=== PATIENT | female | born 1965 | race Caucasian/White ===

== ENCOUNTER 2024-12-20 16:29 | Outpatient (REF) | payer MEDICARE, SELFPAY ==
--- OUTSIDE RECORDS SUMMARY | 2024-12-20 16:35 | XMS_ITS ---
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 Role Phone Henry GRIMES, [facility] Primary Care Provider CHACHO Mejia Unavailable [phone] Allergies No Known Allergies REASON FOR VISIT RIGHT LOW BACK PAIN, RIGHT HIP PAIN, RIGHT LEG PAIN Medications Medication SIG (Take, Route, Frequency, Duration) Notes Start Date End Date Status DULoxetine HCl 40 MG 1 capsule Orally Once a day Not-Taking diazePAM 5 MG 1 tablet as needed Orally every 8 hours Not-Taking Amitiza 24 MCG 1 capsule with food and water Orally Twice a day for 30 day(s) 02/14/2020 Not-Taking Atomoxetine HCl 80 MG Orally Once a day Not-Taking Naproxen 500 MG 1 tablet with food or milk Orally Twice a day Not-Taking Ventolin HFA 108 (90 Base) MCG/ACT 2 puffs Inhalation every 4 hrs Not-Taking Lisinopril 20 MG 1 tablet Orally Once a day Not-Taking rOPINIRole HCl 1 MG 1 tablet Orally Once a day Not-Taking Atomoxetine HCl 40 MG 1 capsule Orally Twice a day Not-Taking Citalopram Hydrobromide Not-Taking OxyCONTIN 15 MG 1 tablet Orally every 8 hrs for 18 days M47.816 Lumbar spondylosis, the patient can request partial refill 11/10/2023 Active OxyCONTIN 15 MG 1 tablet Orally every 12 hrs 11/10/2023 Active Methocarbamol 500 MG TAKE 1 TABLET BY MOUTH EVERY 8 HOURS for 30 Active Lidocaine 5 % APPLY 1 PATCH TOPICALLY EVERY DAY, REMOVE AFTER 12 HOURS for 60 days Active methylPREDNISolone 4 MG as directed Orally 6 days for 6 days take as directed 01/25/2024 Active Xtampza ER 13.5 MG 1 capsule with food Orally every 12 hrs for 30 days 02/24/2023 Active tiZANidine HCl 4 MG TAKE 1 TO 2 TABLETS BY MOUTH EVERY NIGHT AT BEDTIME for 30 Active Skelaxin 800 MG 1 tablet Orally Three times a day for 30 day(s) 02/26/2022 Active Narcan 4 MG/0.1ML as directed, after use immediately call 911 Nasally as needed for 30 days 03/04/2021 Active busPIRone HCl 10 MG 1 tablet Orally Twice a day Active traZODone HCl 50 MG 1 tablet Orally BID Active hydrOXYzine HCl 25 MG 1 tablet as needed Orally TID Active Senna 8.6 MG 2 tablets at bedtime as needed Orally Once a day for 30 day(s) 07/29/2020 Active Polyethylene Glycol 3350 17 GM/SCOOP as directed Orally Once a day for 30 days 07/29/2020 Active Albuterol Sulfate 2 puffs Inhalation as needed Active Acyclovir 200 MG 1 capsule Orally Three times a day Active Cane - as directed Active Pantoprazole Sodium 40 MG 1 tablet Orally Once a day Active Eliquis 2.5 MG as directed Orally Active clonazePAM 0.5 MG 1 tablet Orally Once a day Active Lidocaine 5 % 1 patch remove after 12 hours Externally Once a day for 30 days Active Social History Tobacco Use: Social History Observation Description Date Details (start date - stop date) Never Smoker NA - NA Tobacco Use/Smoking Question Answer Notes Are you a nonsmoker Tobacco Control (Standard) Question Answer Notes Tobacco use: Nonsmoker Vital Signs Temperature 98.4 degrees Fahrenheit 04/25/20 24 Heart Rate 107 /min 04/25/2024 Blood pressure systolic 178 mm Hg 04/25/20 24 Blood pressure diastolic 97 mm Hg 024 Height 65 in 04/25/2024 Weight 145 lbs 04/25/2024 BMI 24.13 kg/m2 04/25/2024 Oximetry 97 % 04/25/2024 Encounters Encounter Location Date Provider Diagnosis [facility] [address] [place] [id number] 04/25/2024 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.891 ; Spondylosis without myelopathy or radiculopathy, lumbar region M47.816 and Radiculopathy, lumbosacral region M54.17 Assessments Encounter Date Diagnosis (ICD Code) Assessment Notes Treatment Notes Treatment Clinical Notes Section Notes 04/25/2024 assisted (current) use of opiate analgesic (ICD-10 - Z79.891) 04/25/2024 Spondylosis without myelopathy or radiculopathy, lumbar region (ICD-10 - M47.816) 04/25/2024 Radiculopathy, lumbosacral region (ICD-10 - M54.17) Regarding medication management, we checked the prescription monitoring program it was appropriate, and drug screen test done on03/28/24 and on 04/05/2024 was positive for oxycodone, and metabolites,but also positive for cocaine for the second time we told the patient that we won't be able to prescribe narcotic pain medications I give her a weaning protocol, I offered her clonidine but she said that she already has a at home I give her instructions how to use it I offered to referring her to an network operations specialist but she is denying she is saying that her has put cocaine in 1 of her dental medications that she was for pain when she had dental problems last month, he was angry with her because she was directed she was not aware that it had dental pain, she is filing a divorce, I ordered a urine drug screen test to confirm compliance today I might consider Suboxone in the future but I told her that I would make my decision next visit I spoke with the patient regarding the previous urine drug screen test that was positive in March in a previous discussion but she denied that is why be repeated it in AprilRegarding physical therapy, continue physical therapy exercisesRegarding interventional procedures, the patient is experiencing a flareup of pain in the right lower extremity she has approval for the transforaminal epidural steroid injection,she doesn't want to do the interventional procedures today Plan Of Treatment Treatment Notes Assessment Notes Radiculopathy, lumbosacral region Regard ing medication management, we checked the prescription monitoring program it was appropriate, and drug screen test done on03/28/24 and on 04/05/2024 was positive for oxycodone, and metabolites,but also positive for cocaine for the second time we told the patient that we won't be able to prescribe narcotic pain medications I give her a weaning protocol, I offered her clonidine but she said that she already has a at home I give her instructions how to use it I offered to referring her to an network operations specialist but she is denying she is saying that her has put cocaine in 1 of her dental medications that she was for pain when she had dental problems last month, he was angry with her because she was directed she was not aware that it had dental pain, she is filing a divorce, I ordered a urine drug screen test to confirm compliance today I might consider Suboxone in the future but I told her that I would make my decision next visit I spoke with the patient regarding the previous urine drug screen test that was positive in March in a previous discussion but she denied that is why be repeated it in AprilRegarding physical therapy, continue physical therapy exercisesRegarding interventional procedures, the patient is experiencing a flareup of pain in the right lower extremity she has approval for the transforaminal epidural steroid injection,she doesn't want to do the interventional procedures today Next Appt Details Follow Up: 4 Weeks, Reason: Progress Notes * ALLEN CARRERA ADOB:[birth year] (58 yo F)Acc No.[id number]:04/25/2024 Progress Notes Patient:?ALLEN CARRERA A Provider:?Chacho Price MD :[id number]???Age:58 Y???Sex:Female D ate:04/25/2024 Address:[address] [place] [address] Pcp:Stella Figueroa MD Subjective: * Chief Complaints: * ???RIGHT LOW BACK PAINRIGHT HIP PAINRIGHT LEG PAIN * HPI: ???Type:?Patient returns today for follow-up working mouth infection she was started on antibiotic due to that?continues to suffer from pain in the low back area and lower extremity reporting that for the last week the pain has recurred in the low back and the right lower extremity requesting repeating the epidural steroid injection, the last injection offered her 90% relief of pain for 4 month she was able to stand, walk, sleep without pain until the pain recurred again last week,experiencing a flareup of pain in the low back area radiating to the right lower extremity and sharpshooting attacks associated with weakness and numbness and tingling the patient has tried nonsteroidals, Tylenol, physical therapy exercises for the last 4 months with no relief she is requesting injections to help relieve the pain pain score during the interview is more than 6 the patient continues to take her pain medications as prescribed only from our clinic they help relieve the pain improve mobility activity analgesia range of motion no constipation. * ROS:?General/Constitutional:?Denies?Chills.?Denies?Fatigue.?Denies?Fever.?Endocrine:?Denies?Diabetes.?Respiratory:?Admits?Breathing problems.?Admits?Shortness of breath.?Cardiovascular:?Denies?Chest pain.?Musculoskeletal:?Denies?Neck pain.?Admits?Arthritis.?Admits?Back problems.?Skin:?Denies?Skin lesion(s).?Neurologic:?Denies?Tingling/Numbness.?Psychiatric:?Admits?Anxiety.?Admits?Depressed mood.? * Medical History:? * Surgical History:?DNC proced ure that was done in 2000 and had complications and has been on disability since laprascopy 2 * Hospitalization/Major Diagno stic Procedure:?in hospital for entire month of may for gallbladder and pancreas stones and cysts 05/2020er for vomitting all day- gave zofran and sent home- unsure of cause 09/02/2020ER FOR ANIETY HAD A BAD FALL HIT HER HEAD AND PASSED OUT 04/23/24 * Family History:?Mother: [place] n and lung Cancer.? * Social History:?Tobacco Use:?Tobacco Use/Smoking?Are you a?nonsmoker ?Tobacco Control (Standard)?Tobacco use:?Nonsmoker * Medications:?TakingLidocaine 5 % Patch 1 patch remove after 12 hours Externally Once a day Cane - Miscellaneous as directed Acyclovir 200 MG Capsule 1 capsule Orally Three times a day Pantoprazole Sodium 40 MG Tablet Delayed Release 1 tablet Orally Once a day clonazePAM 0.5 MG Tablet 1 tablet Orally Once a day Eliquis 2.5 MG Tablet as directed Orally hydrOXYzine HCl 25 MG Tablet 1 tablet as needed Orally TID traZODone HCl 50 MG Tablet 1 tablet Orally BID Albuterol Sulfate 2 puffs Inhalation as needed Polyethylene Glycol 3350 17 GM/SCOOP Powder as directed Orally Once a day Senna 8.6 MG Tablet 2 tablets at bedtime as needed Orally Once a day busPIRone HCl 10 MG Tablet 1 tablet Orally Twice a day Narcan 4 MG/0.1ML Liquid as directed, after use immediately call 911 Nasally as needed Skelaxin 800 MG Tablet 1 tablet Orally Three times a day tiZANidine HCl 4 MG Tablet TAKE 1 TO 2 TABLETS BY MOUTH EVERY NIGHT AT BEDTIME Xtampza ER 13.5 MG Capsule ER 12 Hour Abuse-Deterrent 1 capsule with food Orally every 12 hrs Lidocaine 5 % Patch APPLY 1 PATCH TOPICALLY EVERY DAY, REMOVE AFTER 12 HOURS Methocarbamol 500 MG Tablet TAKE 1 TABLET BY MOUTH EVERY 8 HOURS OxyCONTIN 15 MG Tablet ER 12 Hour Abuse-Deterrent 1 tablet Orally every 12 hrs OxyCONTIN 15 MG Tablet ER 12 Hour Abuse-Deterrent 1 tablet Orally every 8 hrs , Notes to Pharmacist: M47.816 Lumbar spondylosis, the patient can request partial refillmethylPREDNISolone 4 MG Tablet Therapy Pack as directed Orally 6 days take as directedTaking Lidocaine 5 % Patch 1 patch remove after 12 hours Externally Once a day Taking Cane - Miscellaneous as directed Taking Acyclovir 200 MG Capsule 1 capsule Orally Three times a day Taking Pantoprazole Sodium 40 MG Tablet Delayed Release 1 tablet Orally Once a day Taking clonazePAM 0.5 MG Tablet 1 tablet Orally Once a day Taking Eliquis 2.5 MG Tablet as directed Orally Taking hydrOXYzine HCl 25 MG Tablet 1 tablet as needed Orally TID Taking traZODone HCl 50 MG Tablet 1 tablet Orally BID Taking Albuterol Sulfate 2 puffs Inhalation as needed Taking Polyethylene Glycol 3350 17 GM/SCOOP Powder as directed Orally Once a day Taking Senna 8.6 MG Tablet 2 tablets at bedtime as needed Orally Once a day Taking busPIRone HCl 10 MG Tablet 1 tablet Orally Twice a day Taking Narcan 4 MG/0.1ML Liquid as directed, after use immediately call 911 Nasally as needed Taking Skelaxin 800 MG Tablet 1 tablet Orally Three times a day Taking tiZANidine HCl 4 MG Tablet TAKE 1 TO 2 TABLETS BY MOUTH EVERY NIGHT AT BEDTIME Taking Xtampza ER 13.5 MG Capsule ER 12 Hour Abuse-Deterrent 1 capsule with food Orally every 12 hrs Taking Lidocaine 5 % Patch APPLY 1 PATCH TOPICALLY EVERY DAY, REMOVE AFTER 12 HOURS Taking Methocarbamol 500 MG Tablet TAKE 1 TABLET BY MOUTH EVERY 8 HOURS Taking OxyCONTIN 15 MG Tablet ER 12 Hour Abuse-Deterrent 1 tablet Orally every 12 hrs Taking OxyCONTIN 15 MG Tablet ER 12 Hour Abuse-Deterrent 1 tablet Orally every 8 hrs , Notes to Pharmacist: M47.816 Lumbar spondylosis, the patient can request partial refillTaking methylPREDNISolone 4 MG Tablet Therapy Pack as directed Orally 6 days take as directedNot-Taking/PRNCitalopram Hydrobromide Atomoxetine HCl 40 MG Capsule 1 capsule Orally Twice a day rOPINIRole HCl 1 MG Tablet 1 tablet Orally Once a day Lisinopril 20 MG Tablet 1 tablet Orally Once a day Ventolin HFA 108 (90 Base) MCG/ACT Aerosol Solution 2 puffs Inhalation every 4 hrs DULoxetine HCl 40 MG Capsule Delayed Release Particles 1 capsule Orally Once a day Naproxen 500 MG Tablet 1 tablet with food or milk Orally Twice a day Atomoxetine HCl 80 MG Capsule Orally Once a day Amitiza 24 MCG Capsule 1 capsule with food and water Orally Twice a day diazePAM 5 MG Tablet 1 tablet as needed Orally every 8 hours Medication List reviewed and reconciled with the patientNot-Taking/PRN Citalopram Hydrobromide Not- Taking/PRN Atomoxetine HCl 40 MG Capsule 1 capsule Orally Twice a day Not-Taking/PRN rOPINIRole HCl 1 MG Tablet 1 tablet Orally Once a day Not-Taking/PRN Lisinopril 20 MG Tablet 1 tablet Orally Once a day Not-Taking/PRN Ventolin HFA 108 (90 Base) MCG/ACT Aerosol Solution 2 puffs Inhalation every 4 hrs Not-Taking/PRN DULoxetine HCl 40 MG Capsule Delayed Release Particles 1 capsule Orally Once a day Not-Taking/PRN Naproxen 500 MG Tablet 1 tablet with food or milk Orally Twice a day Not-Taking/PRN Atomoxetine HCl 80 MG Capsule Orally Once a day Not-Taking/PRN Amitiza 24 MCG Capsule 1 capsule with food and water Orally Twice a day Not-Taking/PRN diazePAM 5 MG Tablet 1 tablet as needed Orally every 8 hours Medication List reviewed and reconciled with the patient * Allergies:?N.K.D.A.no[Allerg ies Verified] Objective: * Vitals:?Temp:98.4F, HR:107/m in, BP:178/97mm Hg, Ht: 65 in, Wt:145lbs, BMI:24.13Index, Oxygen sat %:97%, Pain scale:41-10, Wt-k.77 kg. * Examination: ???General Examination: ?GENERAL APPEARANCE:? alert and oriented x3, ambulating without cane.?SKIN:? normal, intact, no rashes, warm and dry.?BACK:?moderate to severe decrease range of motion on lumbar extension, side bending and rotatation left with exacerbation of pain in these positions,positive Right lumbar facet loading test, positive tenderness on palpating Right paravertebral areas at L2,3,4, 5 worse on right,motor power 5/5, except the right lower extremity 3/5, decreased sensation to light touch along the posterior and lateral aspect of right lower extremity in the right L 5 and S1 distribution positive right straight leg raising test on right at 30 degrees., Positive right ilioinguinal area tenderness on palpation negative pain on internal rotation of both hips, negative swelling on the left wrist area, no splints or bandages, no redness..? 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 Plan: * Treatment: * Procedure Codes:? * Follow Up:?4 Weeks * Images: * Sign off status: Completed true * Provider:?Chacho Price MD Date:? 024 Generated for Henna vitale/Irina/eTransmitting on:?12/20/2024 04:35 PM EST History and Physical Notes * Examination Category Sub-Category Detail Notes Category Not es General Examination GENERAL APPEARANCE: alert an d oriented x3, ambulating without cane SKIN: normal, intact, no r ashes, warm and dry BACK: moderate to severe d ecrease range of motion on lumbar extension, side bending and rotatation left with exacerbation of pain in these positions, positive Right lumbar facet loading test, positive tenderness on palpating Right paravertebral areas at L2,3,4, 5 worse on right,motor power 5/5, except the right lower extremity 3/5, decreased sensation to light touch along the posterior and lateral aspect of right lower extremity in the right L 5 and S1 distribution positive right straight leg raising test on right at 30 degrees., Positive right ilioinguinal area tenderness on palpation negative pain on internal rotation of both hips, negative swelling on the left wrist area, no splints or bandages, no redness.
--- OUTSIDE RECORDS SUMMARY | 2024-12-20 16:35 | XMS_ITS | Patient Health Record ---
Author Organization [facility] Address [address] [place] [address] Care Team Providers [facility] Counselor Name Role Phone Henry GRIMES, [facility] Primary Care Provider Juliet LINDA Ryan Unavailable [phone] Allergies No Known Allergies Results Component Value Reference Range Notes TRAMADOL QUANTITATIVE (Not y et reviewed by provider) Interpretation: Performing Lab:[facility], [facility], [address], [place], [place] [id number], Phone - , Director - Osorio Bauman MD Notes/Report: Prescribed Medications: Oxycodone (Oxycodone-Conc), OxyContin (Oxycodone) Tramadol NEGATIVE 100 ng/ml O-Desmethyltramadol NEGATIVE 50 ng/mL NITRITEURINE 26 0-199 ug/mL PHURINE 7.6 4.5-9.0 pH SPECIFICGRAVITY 1.016 1.0010-1.0250 CREATININE 156 20-300 mg/dL If CREATININE is <20 mg/dL urine sample should be considered DILUTED. If NITRITE is 200-499 ug/mL the results should be considered INVALID. If NITRITE is >499 ug/mL the urine sample should be considered ADULTERATED. If pH is 3.0-4.5 or 9.0-11.0 the results should be considered INVALID. If pH is <3.0 or >11.0 the urine sample should be considered ADULTERATED. OXYCODONE QUANTITATIVE (Not yet reviewed by provider) Interpretation: Performing Lab:[facility], [address], [place], [place] [phone], Phone - , Director - Osorio Bauman MD Notes/Report: Prescribed Medications: Oxycodone (Oxycodone-Conc), OxyContin (Oxycodone) Oxycodone >1999 7784 POSITIVE Consistent 50 ng/mL Sources of Oxycodone include Oxycontin, Oxynorm, Roxicodone, Combunox, Endocet, Endoden, Percocet Prcodan, Roxicet and Tylox. Oxycodone is also a known impurity in various commercial preparations of oxymorphone. Oxymorphone >1999 05345 POSITIVE Consistent 50 ng/mL Oxymorphone is a metabolite of oxycodone, its presence is consistent with oxycodone. Oxymorphone(Opana, Opana ER) is also available as a prescription drug. Noroxycodone >1999 15559 POSITIVE Consistent 50 ng/mL Noroxycodone is major metabolite of Oxycodone. OPIATES QUANTITATIVE (Not ye t reviewed by provider) Interpretation: Performing Lab:[facility], [address], [place] [phone], Phone - , Director - Osorio Bauman MD Notes/Report: Prescribed Medications: Oxycodone (Oxycodone-Conc), OxyContin (Oxycodone) Codeine NEGATIVE 50 ng/mL Morphine NEGATIVE 50 ng/mL Hydrocodone NEGATIVE 50 ng/mL Hydromorphone NEGATIVE 50 ng/mL Norhydrocodone NEGATIVE 50 ng/mL Dihydrocodeine NEGATIVE 50 ng/mL MUSCLE RELAXANT, QUANTITATIV E (Not yet reviewed by provider) Interpretation: Performing Lab:[facility], [address], [place], [place] [id number], Phone - , Director - Osorio Bauman MD Notes/Report: Prescribed Medications: Oxycodone (Oxycodone-Conc), OxyContin (Oxycodone) Carisoprodol NEGATIVE 100 ng/mL Meprobamate NEGATIVE 100 ng/mL Cyclobenzaprine NEGATIVE 50 ng/mL METHADONE QUANTITATIVE (Not yet reviewed by provider) Interpretation: Performing Lab:[facility], [address], [place], [place] [phone], Phone - , - Osorio Bauman MD Notes/Report: Prescribed Medications: Oxycodone (Oxycodone-Conc), OxyContin (Oxycodone) Methadone NEGATIVE 50 ng/mL EDDPMethadoneMetabolite NEGATIVE 50 ng/mL MDMA (ECSTASY) QUANTITATIVE (Not yet reviewed by provider) Interpretation: Performing Lab:[facility], [facility], [address], [place], [place] [phone], Phone - , - Osorio Bauman MD Notes/Report: Prescribed Medications: Oxycodone (Oxycodone-Conc), OxyContin (Oxycodone) MDMA(Ecstasy) NEGATIVE 100 ng/mL MethyleneDioxyEthylAmphe. NEGATIVE 100 ng/mL MethyleneDioxyAmphetamine NEGATIVE 100 ng/mL FENTANYL QUANTITATIVE (Not y et reviewed by provider) Interpretation: Performing Lab:[facility], [address], [place], [place] [phone], Phone - , Director - Osorio Bauman MD Notes/Report: Prescribed Medications: Oxycodone (Oxycodone-Conc), OxyContin (Oxycodone) Fentanyl NEGATIVE 2 ng/mL Norfentanyl NEGATIVE 10 ng/mL COCAINE QUANTITATIVE (Not ye t reviewed by provider) Interpretation: Performing Lab:[facility], [address], [place], [place] [phone], Phone - , - Osorio Bauman MD Notes/Report: Prescribed Medications: Oxycodone (Oxycodone-Conc), OxyContin (Oxycodone) CocaineMetabolite,U/CFM 518 POSITIVE Inconsistent 100 ng/ml Benzoylecgonine is a metabolite of Cocaine. BUPRENORPHINE QUANTITATIVE ( Not yet reviewed by provider) Interpretation: Performing Lab:[facility], [address], [place], [place] [phone], Phone - , - Osorio Bauman MD Notes/Report: Prescribed Medications: Oxycodone (Oxycodone-Conc), OxyContin (Oxycodone) Naloxone NEGATIVE 20 ng/mL Buprenorphine NEGATIVE 10 ng/ml Norbuprenorphine NEGATIVE 10 ng/mL BENZODIAZEPINE QUANTITATIVE (Not yet reviewed by provider) Interpretation: Performing Lab:[facility], [address], [place], [place] [phone], Phone - , Director - Osorio Bauman MD Notes/Report: Prescribed Medications: Oxycodone (Oxycodone-Conc), OxyContin (Oxycodone) Alprazolam NEGATIVE 50 ng/mL Alpha-HydroxyAlprazolam NEGATIVE 50 ng/mL Nordiazepam NEGATIVE 50 ng/mL Oxazepam NEGATIVE 50 ng/mL Temazepam NEGATIVE 50 ng/mL Clonazepam NEGATIVE 50 ng/mL 7-AminoClonazepam NEGATIVE 50 ng/mL Lorazepam NEGATIVE 50 ng/mL Flurazepam NEGATIVE 50 ng/mL 2-HydroxyEthylFlurazepam NEGATIVE 50 ng/mL Desalkylflurazepam NEGATIVE 50 ng/mL Midazolam NEGATIVE 50 ng/mL Alpha-Hydroxymidazolam NEGATIVE 50 ng/mL Chlordiazepoxide NEGATIVE 50 ng/mL Diazepam NEGATIVE 50 ng/mL Flunitrazepam NEGATIVE 50 ng/mL BARBITURATES QUANTITATIVE (N ot yet reviewed by provider) Interpretation: Performing Lab:[facility], [address], [place], [place] [phone], Phone - , Director - Osorio Bauman MD Notes/Report: Prescribed Medications: Oxycodone (Oxycodone-Conc), OxyContin (Oxycodone) Secobarbital NEGATIVE 100 ng/mL Phenobarbital NEGATIVE 100 ng/mL Butalbital NEGATIVE 100 ng/mL Amphetamine (Not yet reviewe d by provider) Interpretation: Performing Lab:[facility], [address], [place], [place] [phone], Phone - , Director - Osorio Bauman MD Notes/Report: Prescribed Medications: Oxycodone (Oxycodone-Conc), OxyContin (Oxycodone) Amphetamine,U/CFM NEGATIVE 100 ng/mL Methamphetamine NEGATIVE 100 ng/mL 6-ACETYLMORPHINE QUANTITATIV E (Not yet reviewed by provider) Interpretation: Performing Lab:[facility], [facility], [address], [place], [place] [phone], Phone - , - Osorio Bauman MD Notes/Report: Prescribed Medications: Oxycodone (Oxycodone-Conc), OxyContin (Oxycodone) 6MAM(HeroineMetabolite),U/CFM NEGATIVE 10 ng/mL LAB REPORT (Not yet reviewed by provider) Interpretation: Performing Lab:[facility], [address], [place], [place] [phone], Phone - , Director - Osorio Bauman MD Notes/Report: Prescribed Medications: Oxycodone (Oxycodone-Conc), OxyContin (Oxycodone) PDF LAB CREATININE (Not yet reviewed by provider) Interpretation: Performing Lab:[facility], [facility], [address], [place], [place] [id number], Phone - , Director - Osorio Bauman MD Notes/Report: Prescribed Medications: Oxycodone (Oxycodone-Conc), OxyContin (Oxycodone) CREATININE 156 20-300 mg/dL If CREATININE is <20 mg/dL urine sample should be considered DILUTED. If NITRITE is 200-499 ug/mL the results should be considered INVALID. If NITRITE is >499 ug/mL the urine sample should be considered ADULTERATED. If pH is 3.0-4.5 or 9.0-11.0 the results should be considered INVALID. If pH is <3.0 or >11.0 the urine sample should be considered ADULTERATED. COCAINE QUANTITATIVE (Not ye t reviewed by provider) Interpretation: Performing Lab:[facility], [address], [place], [place] [phone], Phone - , - Osorio Bauman MD Notes/Report: Prescribed Medications: Oxycodone (Oxycodone-Conc), OxyContin (Oxycodone) CocaineMetabolite,U/CFM 266 POSITIVE Inconsistent 100 ng/ml Benzoylecgonine is a metabolite of Cocaine. TRAMADOL QUANTITATIVE (Not y et reviewed by provider) Interpretation: Performing Lab:[facility], [facility], [address], [place] [phone], Phone - , Director - Osorio Bauman MD Notes/Report: Prescribed Medications: Oxycodone (Oxycodone-Conc), OxyContin (Oxycodone) Tramadol NEGATIVE 100 ng/ml O-Desmethyltramadol NEGATIVE 50 ng/mL NITRITEURINE 0 0-199 ug/mL PHURINE 6.0 4.5-9.0 pH SPECIFICGRAVITY 1.009 1.0010-1.0250 CREATININE 64 20-300 mg/dL If CREATININE is <20 mg/dL urine sample should be considered DILUTED. If NITRITE is 200-499 ug/mL the results should be considered INVALID. If NITRITE is >499 ug/mL the urine sample should be considered ADULTERATED. If pH is 3.0-4.5 or 9.0-11.0 the results should be considered INVALID. If pH is <3.0 or >11.0 the urine sample should be considered ADULTERATED. OXYCODONE QUANTITATIVE (Not yet reviewed by provider) Interpretation: Performing Lab:[facility], [facility], [address], [place], [place] [phone], Phone - , Director - Osorio Bauman MD Notes/Report: Prescribed Medications: Oxycodone (Oxycodone-Conc), OxyContin (Oxycodone) Oxycodone >1999 4087 POSITIVE Consistent 50 ng/mL Sources of Oxycodone include Oxycontin, Oxynorm, Roxicodone, Combunox, Endocet, Endoden, Percocet Prcodan, Roxicet and Tylox. Oxycodone is also a known impurity in various commercial preparations of oxymorphone. Oxymorphone >1999 5753 POSITIVE Consistent 50 ng/mL Oxymorphone is a metabolite of oxycodone, its presence is consistent with oxycodone. Oxymorphone(Opana, Opana ER) is also available as a prescription drug. Noroxycodone >1999 6339 POSITIVE Consistent 50 ng/mL Noroxycodone is major metabolite of Oxycodone. OPIATES QUANTITATIVE (Not ye t reviewed by provider) Interpretation: Performing Lab:[facility], [address], [place], [place] [phone], Phone - , Director - Osorio Bauman MD Notes/Report: Prescribed Medications: Oxycodone (Oxycodone-Conc), OxyContin (Oxycodone) Codeine NEGATIVE 50 ng/mL Morphine NEGATIVE 50 ng/mL Hydrocodone NEGATIVE 50 ng/mL Hydromorphone NEGATIVE 50 ng/mL Norhydrocodone NEGATIVE 50 ng/mL Dihydrocodeine NEGATIVE 50 ng/mL MUSCLE RELAXANT, QUANTITATIV E (Not yet reviewed by provider) Interpretation: Performing Lab:[facility], [address], [place], [place] [phone], Phone - , Director - Osorio Bauman MD Notes/Report: Prescribed Medications: Oxycodone (Oxycodone-Conc), OxyContin (Oxycodone) Carisoprodol NEGATIVE 100 ng/mL Meprobamate NEGATIVE 100 ng/mL Cyclobenzaprine NEGATIVE 50 ng/mL METHADONE QUANTITATIVE (Not yet reviewed by provider) Interpretation: Performing Lab:[facility], [address], [place], [place] [phone], Phone - , Director - Osorio Bauman MD Notes/Report: Prescribed Medications: Oxycodone (Oxycodone-Conc), OxyContin (Oxycodone) Methadone NEGATIVE 50 ng/mL EDDPMethadoneMetabolite NEGATIVE 50 ng/mL MDMA (ECSTASY) QUANTITATIVE (Not yet reviewed by provider) Interpretation: Performing Lab:[facility], [address], [place], [place] [phone], Phone - , - Osorio Bauman MD Notes/Report: Prescribed Medications: Oxycodone (Oxycodone-Conc), OxyContin (Oxycodone) MDMA(Ecstasy) NEGATIVE 100 ng/mL MethyleneDioxyEthylAmphe. NEGATIVE 100 ng/mL MethyleneDioxyAmphetamine NEGATIVE 100 ng/mL FENTANYL QUANTITATIVE (Not y et reviewed by provider) Interpretation: Performing Lab:[facility], [address], [place], [place] [phone], Phone - , Director - Osorio Bauman MD Notes/Report: Prescribed Medications: Oxycodone (Oxycodone-Conc), OxyContin (Oxycodone) Fentanyl NEGATIVE 2 ng/mL Norfentanyl NEGATIVE 10 ng/mL BUPRENORPHINE QUANTITATIVE ( Not yet reviewed by provider) Interpretation: Performing Lab:[facility], [address], [place], [place] [phone], Phone - , Director - Osorio Bauman MD Notes/Report: Prescribed Medications: Oxycodone (Oxycodone-Conc), OxyContin (Oxycodone) Naloxone NEGATIVE 20 ng/mL Buprenorphine NEGATIVE 10 ng/ml Norbuprenorphine NEGATIVE 10 ng/mL BENZODIAZEPINE QUANTITATIVE (Not yet reviewed by provider) Interpretation: Performing Lab:[facility], [address], [place], [place] [phone], Phone - , Director - Osorio Bauman MD Notes/Report: Prescribed Medications: Oxycodone (Oxycodone-Conc), OxyContin (Oxycodone) Alprazolam NEGATIVE 50 ng/mL Alpha-HydroxyAlprazolam NEGATIVE 50 ng/mL Nordiazepam NEGATIVE 50 ng/mL Oxazepam NEGATIVE 50 ng/mL Temazepam NEGATIVE 50 ng/mL Clonazepam NEGATIVE 50 ng/mL 7-AminoClonazepam NEGATIVE 50 ng/mL Lorazepam NEGATIVE 50 ng/mL Flurazepam NEGATIVE 50 ng/mL 2-HydroxyEthylFlurazepam NEGATIVE 50 ng/mL Desalkylflurazepam NEGATIVE 50 ng/mL Midazolam NEGATIVE 50 ng/mL Alpha-Hydroxymidazolam NEGATIVE 50 ng/mL Chlordiazepoxide NEGATIVE 50 ng/mL Diazepam NEGATIVE 50 ng/mL Flunitrazepam NEGATIVE 50 ng/mL BARBITURATES QUANTITATIVE (N ot yet reviewed by provider) Interpretation: Performing Lab:[facility], [address], [place], [place] [phone], Phone - , Director - Osorio Bauman MD Notes/Report: Prescribed Medications: Oxycodone (Oxycodone-Conc), OxyContin (Oxycodone) Secobarbital NEGATIVE 100 ng/mL Phenobarbital NEGATIVE 100 ng/mL Butalbital NEGATIVE 100 ng/mL Amphetamine (Not yet reviewe d by provider) Interpretation: Performing Lab:[facility], [facility], [address], [place], [place] [phone], Phone - , - Osorio Bauman MD Notes/Report: Prescribed Medications: Oxycodone (Oxycodone-Conc), OxyContin (Oxycodone) Amphetamine,U/CFM NEGATIVE 100 ng/mL Methamphetamine NEGATIVE 100 ng/mL 6-ACETYLMORPHINE QUANTITATIV E (Not yet reviewed by provider) Interpretation: Performing Lab:[facility], [facility], [address], [place], [place] [phone], Phone - , Director - Osorio Bauman MD Notes/Report: Prescribed Medications: Oxycodone (Oxycodone-Conc), OxyContin (Oxycodone) 6MAM(HeroineMetabolite),U/CFM NEGATIVE 10 ng/mL LAB REPORT (Not yet reviewed by provider) Interpretation: Performing Lab:[facility], [address], [place], [place] [phone], Phone - , - Osorio Bauman MD Notes/Report: Prescribed Medications: Oxycodone (Oxycodone-Conc), OxyContin (Oxycodone) PDF LAB CREATININE (Not yet reviewed by provider) Interpretation: Performing Lab:[facility], [address], [place], [place] [phone], Phone - , - Osorio Bauman MD Notes/Report: Prescribed Medications: Oxycodone (Oxycodone-Conc), OxyContin (Oxycodone) CREATININE 64 20-300 mg/dL If CREATININE is <20 mg/dL urine sample should be considered DILUTED. If NITRITE is 200-499 ug/mL the results should be considered INVALID. If NITRITE is >499 ug/mL the urine sample should be considered ADULTERATED. If pH is 3.0-4.5 or 9.0-11.0 the results should be considered INVALID. If pH is <3.0 or >11.0 the urine sample should be considered ADULTERATED. TRAMADOL QUANTITATIVE (Not y et reviewed by provider) Interpretation: Performing Lab:[facility], [facility], [address], [place], [place] [phone], Phone - , Director - Osorio Bauman MD Notes/Report: Prescribed Medications: Oxycodone (Oxycodone-Conc), OxyContin (Oxycodone) Tramadol NEGATIVE 100 ng/ml O-Desmethyltramadol NEGATIVE 50 ng/mL NITRITEURINE 0 0-199 ug/mL PHURINE 7.7 4.5-9.0 pH SPECIFICGRAVITY 1.002 1.0010-1.0250 CREATININE 11 20-300 mg/dL If CREATININE is <20 mg/dL urine sample should be considered DILUTED. If NITRITE is 200-499 ug/mL the results should be considered INVALID. If NITRITE is >499 ug/mL the urine sample should be considered ADULTERATED. If pH is 3.0-4.5 or 9.0-11.0 the results should be considered INVALID. If pH is <3.0 or >11.0 the urine sample should be considered ADULTERATED. OXYCODONE QUANTITATIVE (Not yet reviewed by provider) Interpretation: Performing Lab:[facility], [address], [place], [place] [phone], Phone - , Director - Osorio Bauman MD Notes/Report: Prescribed Medications: Oxycodone (Oxycodone-Conc), OxyContin (Oxycodone) Oxycodone 644 POSITIVE Consistent 50 ng/mL Sources of Oxycodone include Oxycontin, Oxynorm, Roxicodone, Combunox, Endocet, Endoden, Percocet Prcodan, Roxicet and Tylox. Oxycodone is also a known impurity in various commercial preparations of oxymorphone. Oxymorphone 716 POSITIVE Consistent 50 ng/mL Oxymorphone is a metabolite of oxycodone, its presence is consistent with oxycodone. Oxymorphone(Opana, Opana ER) is also available as a prescription drug. Noroxycodone 774 POSITIVE Consistent 50 ng/mL Noroxycodone is major metabolite of Oxycodone. OPIATES QUANTITATIVE (Not ye t reviewed by provider) Interpretation: Performing Lab:[facility], [address], [place], [place] [phone], Phone - , Director - Osorio Bauman MD Notes/Report: Prescribed Medications: Oxycodone (Oxycodone-Conc), OxyContin (Oxycodone) Codeine NEGATIVE 50 ng/mL Morphine NEGATIVE 50 ng/mL Hydrocodone NEGATIVE 50 ng/mL Hydromorphone NEGATIVE 50 ng/mL Norhydrocodone NEGATIVE 50 ng/mL Dihydrocodeine NEGATIVE 50 ng/mL MUSCLE RELAXANT, QUANTITATIV E (Not yet reviewed by provider) Interpretation: Performing Lab:[facility], [address], [place], [place] [phone], Phone - , Director - Osorio Bauman MD Notes/Report: Prescribed Medications: Oxycodone (Oxycodone-Conc), OxyContin (Oxycodone) Carisoprodol NEGATIVE 100 ng/mL Meprobamate NEGATIVE 100 ng/mL Cyclobenzaprine NEGATIVE 50 ng/mL METHADONE QUANTITATIVE (Not yet reviewed by provider) Interpretation: Performing Lab:[facility], [address], [place], [place] [phone], Phone - , Director - Osorio Bauman MD Notes/Report: Prescribed Medications: Oxycodone (Oxycodone-Conc), OxyContin (Oxycodone) Methadone NEGATIVE 50 ng/mL EDDPMethadoneMetabolite NEGATIVE 50 ng/mL MDMA (ECSTASY) QUANTITATIVE (Not yet reviewed by provider) Interpretation: Performing Lab:[facility], [address], [place], [place] [phone], Phone - , Director - Osorio Bauman MD Notes/Report: Prescribed Medications: Oxycodone (Oxycodone-Conc), OxyContin (Oxycodone) MDMA(Ecstasy) NEGATIVE 100 ng/mL MethyleneDioxyEthylAmphe. NEGATIVE 100 ng/mL MethyleneDioxyAmphetamine NEGATIVE 100 ng/mL FENTANYL QUANTITATIVE (Not y et reviewed by provider) Interpretation: Performing Lab:[facility], [address], [place], [place] [phone], Phone - , Director - Osorio Bauman MD Notes/Report: Prescribed Medications: Oxycodone (Oxycodone-Conc), OxyContin (Oxycodone) Fentanyl NEGATIVE 2 ng/mL Norfentanyl NEGATIVE 10 ng/mL COCAINE QUANTITATIVE (Not ye t reviewed by provider) Interpretation: Performing Lab:[facility], [address], [place], [place] [phone], Phone - , Director - Osorio Bauman MD Notes/Report: Prescribed Medications: Oxycodone (Oxycodone-Conc), OxyContin (Oxycodone) CocaineMetabolite,U/CFM NEGATIVE 100 ng/ml BUPRENORPHINE QUANTITATIVE ( Not yet reviewed by provider) Interpretation: Performing Lab:[facility], [address], [place], [place] [phone], Phone - , Director - Osorio Bauman MD Notes/Report: Prescribed Medications: Oxycodone (Oxycodone-Conc), OxyContin (Oxycodone) Naloxone NEGATIVE 20 ng/mL Buprenorphine NEGATIVE 10 ng/ml Norbuprenorphine NEGATIVE 10 ng/mL BENZODIAZEPINE QUANTITATIVE (Not yet reviewed by provider) Interpretation: Performing Lab:[facility], [address], [place], [place] [phone], Phone - , - Osorio Bauman MD Notes/Report: Prescribed Medications: Oxycodone (Oxycodone-Conc), OxyContin (Oxycodone) Alprazolam NEGATIVE 50 ng/mL Alpha-HydroxyAlprazolam NEGATIVE 50 ng/mL Nordiazepam NEGATIVE 50 ng/mL Oxazepam NEGATIVE 50 ng/mL Temazepam NEGATIVE 50 ng/mL Clonazepam NEGATIVE 50 ng/mL 7-AminoClonazepam NEGATIVE 50 ng/mL Lorazepam NEGATIVE 50 ng/mL Flurazepam NEGATIVE 50 ng/mL 2-HydroxyEthylFlurazepam NEGATIVE 50 ng/mL Desalkylflurazepam NEGATIVE 50 ng/mL Midazolam NEGATIVE 50 ng/mL Alpha-Hydroxymidazolam NEGATIVE 50 ng/mL Chlordiazepoxide NEGATIVE 50 ng/mL Diazepam NEGATIVE 50 ng/mL Flunitrazepam NEGATIVE 50 ng/mL BARBITURATES QUANTITATIVE (N ot yet reviewed by provider) Interpretation: Performing Lab:[facility], [address], [place], [place] [phone], Phone - , Director - Osorio Bauman MD Notes/Report: Prescribed Medications: Oxycodone (Oxycodone-Conc), OxyContin (Oxycodone) Secobarbital NEGATIVE 100 ng/mL Phenobarbital NEGATIVE 100 ng/mL Butalbital NEGATIVE 100 ng/mL Amphetamine (Not yet reviewe d by provider) Interpretation: Performing Lab:[facility], [facility], [address], [place], [place] [phone], Phone - , Director - Osorio Bauman MD Notes/Report: Prescribed Medications: Oxycodone (Oxycodone-Conc), OxyContin (Oxycodone) Amphetamine,U/CFM NEGATIVE 100 ng/mL Methamphetamine NEGATIVE 100 ng/mL 6-ACETYLMORPHINE QUANTITATIV E (Not yet reviewed by provider) Interpretation: Performing Lab:[facility], [facility], [address], [place], [place] [phone], Phone - , Director - Osorio Bauman MD Notes/Report: Prescribed Medications: Oxycodone (Oxycodone-Conc), OxyContin (Oxycodone) 6MAM(HeroineMetabolite),U/CFM NEGATIVE 10 ng/mL LAB REPORT (Not yet reviewed by provider) Interpretation: Performing Lab:[facility], [address], [place], [place] [phone], Phone - , Director - Osorio Bauman MD Notes/Report: Prescribed Medications: Oxycodone (Oxycodone-Conc), OxyContin (Oxycodone) PDF LAB CREATININE (Not yet reviewed by provider) Interpretation: Performing Lab:[facility], [address], [place], [place] [phone], Phone - , Director - Osorio Bauman MD Notes/Report: Prescribed Medications: Oxycodone (Oxycodone-Conc), OxyContin (Oxycodone) CREATININE 11 20-300 mg/dL If CREATININE is <20 mg/dL urine sample should be considered DILUTED. If NITRITE is 200-499 ug/mL the results should be considered INVALID. If NITRITE is >499 ug/mL the urine sample should be considered ADULTERATED. If pH is 3.0-4.5 or 9.0-11.0 the results should be considered INVALID. If pH is <3.0 or >11.0 the urine sample should be considered ADULTERATED. TRAMADOL QUANTITATIVE (Not y et reviewed by provider) Interpretation: Performing Lab:[facility], [facility], [address], [place], [place] [phone], Phone - , Director - Osorio Bauman MD Notes/Report: Prescribed Medications: Oxycodone (Oxycodone-Conc), OxyContin (Oxycodone) Tramadol NEGATIVE 100 ng/ml O-Desmethyltramadol NEGATIVE 50 ng/mL NITRITEURINE 22 0-199 ug/mL PHURINE 5.3 4.5-9.0 pH SPECIFICGRAVITY 1.018 1.0010-1.0250 CREATININE 159 20-300 mg/dL If CREATININE is <20 mg/dL urine sample should be considered DILUTED. If NITRITE is 200-499 ug/mL the results should be considered INVALID. If NITRITE is >499 ug/mL the urine sample should be considered ADULTERATED. If pH is 3.0-4.5 or 9.0-11.0 the results should be considered INVALID. If pH is <3.0 or >11.0 the urine sample should be considered ADULTERATED. OXYCODONE QUANTITATIVE (Not yet reviewed by provider) Interpretation: Performing Lab:[facility], [address], [place], [place] [phone], Phone - , Director - Osorio Bauman MD Notes/Report: Prescribed Medications: Oxycodone (Oxycodone-Conc), OxyContin (Oxycodone) Oxycodone >1999 90527 POSITIVE Consistent 50 ng/mL Sources of Oxycodone include Oxycontin, Oxynorm, Roxicodone, Combunox, Endocet, Endoden, Percocet Prcodan, Roxicet and Tylox. Oxycodone is also a known impurity in various commercial preparations of oxymorphone. Oxymorphone >1999 7664 POSITIVE Consistent 50 ng/mL Oxymorphone is a metabolite of oxycodone, its presence is consistent with oxycodone. Oxymorphone(Opana, Opana ER) is also available as a prescription drug. Noroxycodone >1999 9510 POSITIVE Consistent 50 ng/mL Noroxycodone is major metabolite of Oxycodone. OPIATES QUANTITATIVE (Not ye t reviewed by provider) Interpretation: Performing Lab:[facility], [address], [place], [place] [id number], Phone - , Director - Osorio Bauman MD Notes/Report: Prescribed Medications: Oxycodone (Oxycodone-Conc), OxyContin (Oxycodone) Codeine NEGATIVE 50 ng/mL Morphine NEGATIVE 50 ng/mL Hydrocodone NEGATIVE 50 ng/mL Hydromorphone NEGATIVE 50 ng/mL Norhydrocodone NEGATIVE 50 ng/mL Dihydrocodeine NEGATIVE 50 ng/mL MUSCLE RELAXANT, QUANTITATIV E (Not yet reviewed by provider) Interpretation: Performing Lab:[facility], [address], [place], [place] [phone], Phone - , Director - Osorio Bauman MD Notes/Report: Prescribed Medications: Oxycodone (Oxycodone-Conc), OxyContin (Oxycodone) Carisoprodol NEGATIVE 100 ng/mL Meprobamate NEGATIVE 100 ng/mL Cyclobenzaprine NEGATIVE 50 ng/mL METHADONE QUANTITATIVE (Not yet reviewed by provider) Interpretation: Performing Lab:[facility], [address], [place], [place] [id number], Phone - , Director - Osorio Bauman MD Notes/Report: Prescribed Medications: Oxycodone (Oxycodone-Conc), OxyContin (Oxycodone) Methadone NEGATIVE 50 ng/mL EDDPMethadoneMetabolite NEGATIVE 50 ng/mL MDMA (ECSTASY) QUANTITATIVE (Not yet reviewed by provider) Interpretation: Performing Lab:[facility], [facility], [address], [place], [place] [phone], Phone - , Director - Osorio Bauman MD Notes/Report: Prescribed Medications: Oxycodone (Oxycodone-Conc), OxyContin (Oxycodone) MDMA(Ecstasy) NEGATIVE 100 ng/mL MethyleneDioxyEthylAmphe. NEGATIVE 100 ng/mL MethyleneDioxyAmphetamine NEGATIVE 100 ng/mL FENTANYL QUANTITATIVE (Not y et reviewed by provider) Interpretation: Performing Lab:[facility], [address], [place], [place] [id number], Phone - , Director - Osorio Bauman MD Notes/Report: Prescribed Medications: Oxycodone (Oxycodone-Conc), OxyContin (Oxycodone) Fentanyl NEGATIVE 2 ng/mL Norfentanyl NEGATIVE 10 ng/mL COCAINE QUANTITATIVE (Not ye t reviewed by provider) Interpretation: Performing Lab:[facility], [address], [place], [place] [phone], Phone - , Director - Osorio Bauman MD Notes/Report: Prescribed Medications: Oxycodone (Oxycodone-Conc), OxyContin (Oxycodone) CocaineMetabolite,U/CFM NEGATIVE 100 ng/ml BUPRENORPHINE QUANTITATIVE ( Not yet reviewed by provider) Interpretation: Performing Lab:[facility], [address], [place], [place] [phone], Phone - , Director - Osorio Bauman MD Notes/Report: Prescribed Medications: Oxycodone (Oxycodone-Conc), OxyContin (Oxycodone) Naloxone NEGATIVE 20 ng/mL Buprenorphine NEGATIVE 10 ng/ml Norbuprenorphine NEGATIVE 10 ng/mL BENZODIAZEPINE QUANTITATIVE (Not yet reviewed by provider) Interpretation: Performing Lab:[facility], [facility], [address], [place], [place] [phone], Phone - , Director - Osorio Bauman MD Notes/Report: Prescribed Medications: Oxycodone (Oxycodone-Conc), OxyContin (Oxycodone) Alprazolam NEGATIVE 50 ng/mL Alpha-HydroxyAlprazolam NEGATIVE 50 ng/mL Nordiazepam NEGATIVE 50 ng/mL Oxazepam NEGATIVE 50 ng/mL Temazepam NEGATIVE 50 ng/mL Clonazepam NEGATIVE 50 ng/mL 7-AminoClonazepam NEGATIVE 50 ng/mL Lorazepam 545 POSITIVE Inconsistent 50 ng/mL Presence of Lorazepam is consistent with (Ativan). Flurazepam NEGATIVE 50 ng/mL 2-HydroxyEthylFlurazepam NEGATIVE 50 ng/mL Desalkylflurazepam NEGATIVE 50 ng/mL Midazolam NEGATIVE 50 ng/mL Alpha-Hydroxymidazolam NEGATIVE 50 ng/mL Chlordiazepoxide NEGATIVE 50 ng/mL Diazepam NEGATIVE 50 ng/mL Flunitrazepam NEGATIVE 50 ng/mL BARBITURATES QUANTITATIVE (N ot yet reviewed by provider) Interpretation: Performing Lab:[facility], [address], [place], [place] [phone], Phone - , Director - Osorio Bauman MD Notes/Report: Prescribed Medications: Oxycodone (Oxycodone-Conc), OxyContin (Oxycodone) Secobarbital NEGATIVE 100 ng/mL Phenobarbital NEGATIVE 100 ng/mL Butalbital NEGATIVE 100 ng/mL Amphetamine (Not yet reviewe d by provider) Interpretation: Performing Lab:[facility], [address], [place], [place] [phone], Phone - , Director - Osorio Bauman MD Notes/Report: Prescribed Medications: Oxycodone (Oxycodone-Conc), OxyContin (Oxycodone) Amphetamine,U/CFM NEGATIVE 100 ng/mL Methamphetamine NEGATIVE 100 ng/mL 6-ACETYLMORPHINE QUANTITATIV E (Not yet reviewed by provider) Interpretation: Performing Lab:[facility], [facility], [address], [place], [place] [phone], Phone - , Director - Osorio Bauman MD Notes/Report: Prescribed Medications: Oxycodone (Oxycodone-Conc), OxyContin (Oxycodone) 6MAM(HeroineMetabolite),U/CFM NEGATIVE 10 ng/mL LAB REPORT (Not yet reviewed by provider) Interpretation: Performing Lab:[facility], [facility], [address], [place], [place] [phone], Phone - , Director - Osorio Bauman MD Notes/Report: Prescribed Medications: Oxycodone (Oxycodone-Conc), OxyContin (Oxycodone) PDF LAB CREATININE (Not yet reviewed by provider) Interpretation: Performing Lab:[facility], [facility], [address], [place], [place] [phone], Phone - , Director - Osorio Bauman MD Notes/Report: Prescribed Medications: Oxycodone (Oxycodone-Conc), OxyContin (Oxycodone) CREATININE 159 20-300 mg/dL If CREATININE is <20 mg/dL urine sample should be considered DILUTED. If NITRITE is 200-499 ug/mL the results should be considered INVALID. If NITRITE is >499 ug/mL the urine sample should be considered ADULTERATED. If pH is 3.0-4.5 or 9.0-11.0 the results should be considered INVALID. If pH is <3.0 or >11.0 the urine sample should be considered ADULTERATED. Reason For Referral No Information Medications Medication SIG (Take, Route, Frequency, Duration) Notes Start Date End Date Status Acyclovir 200 MG 1 capsule Orally Three times a day Active Lisinopril 20 MG 1 tablet Orally Once a day Not-Taking Cane - as directed Active rOPINIRole HCl 1 MG 1 tablet Orally Once a day Not-Taking Lidocaine 5 % 1 patch remove after 12 hours Externally Once a day for 30 days Active Atomoxetine HCl 40 MG 1 capsule Orally Twice a day Not-Taking Citalopram Hydrobromide Not-Taking methylPREDNISolone 4 MG as directed Orally 6 days for 6 days take as directed 01/25/2024 Active OxyCONTIN 15 MG 1 tablet Orally [...] AFTER 12 HOURS for 60 days Active Xtampza ER 13.5 MG 1 capsule [...] 1 tablet Orally Twice a day Active Senna 8.6 MG 2 tablets at bedtime as needed Orally Once a day for 30 day(s) 07/29/2020 Active Polyethylene Glycol 3350 17 GM/SCOOP as directed Orally Once a day for 30 days 07/29/2020 Active Albuterol Sulfate 2 puffs Inhalation as needed Active diazePAM 5 MG 1 tablet as needed Orally every 8 hours Not-Taking traZODone HCl 50 MG 1 tablet Orally BID Active Amitiza 24 MCG 1 capsule with food and water Orally Twice a day for 30 day(s) 02/14/2020 Not-Taking hydrOXYzine HCl 25 MG 1 tablet as needed Orally TID Active Atomoxetine HCl 80 MG Orally Once a day Not-Taking Naproxen 500 MG 1 tablet with food or milk Orally Twice a day Not-Taking DULoxetine HCl 40 MG 1 capsule Orally Once a day Not-Taking Eliquis 2.5 MG as directed Orally Active clonazePAM 0.5 MG 1 tablet Orally Once a day Active Pantoprazole Sodium 40 MG 1 tablet Orally Once a day Active Ventolin HFA 108 (90 Base) MCG/ACT 2 puffs Inhalation every 4 hrs Not-Taking Social History Tobacco Use: Social History Observation Description Date Details (start date - stop date) Never Smoker NA - NA Tobacco Use/Smoking Question Answer Notes Are you a nonsmoker Alcohol Screen (Audit-C) Question Answer Notes Did you have a drink contain ing alcohol in the past year? Yes How often did you have a dri nk containing alcohol in the past year? Monthly or less (1 point) How many drinks did you have on a typical day when you were drinking in the past year? 1 or 2 drinks (0 point) How often did you have 6 or more drinks on one occasion in the past year? 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) Active confirmed Vital Signs Heart Rate 107 /min 04/25/2024 Temperature 98.4 degrees Fahrenheit 04/25/2024 Oximetry 97 % 04/25/2024 Blood pressure diastolic 97 mm Hg 04/25/2024 Height 65 in 04/25/2024 Blood pressure systolic 178 mm Hg 04/25/2024 Weight 145 lbs 04/25/2024 BMI 24.13 kg/m2 04/25/2024 Encounters Encounter Location Date Provider Diagnosis [facility] [address] [place] [phone] 01/03/2024 LINDA PRICE [facility] [address] [place] [phone] 01/03/2024 LINDA PRICE petroleum terminal plant operator (current) use of opiate analgesic Z79.891 [facility] [address] [place] [phone] 02/21/2024 LINDA FARID [facility] [address] [place] [phone] 02/21/2024 LINDA FARID petroleum terminal plant operator (current) use of opiate analgesic Z79.891 [facility] [address] [place] [phone] 04/05/2024 LINDA FARID [facility] [address] [place] [phone] 12/20/2023 LINDA FARID petroleum terminal plant operator (current) use of opiate analgesic Z79.891 ; Spondylosis without myelopathy or radiculopathy, lumbar region M47.816 and Radiculopathy, lumbosacral region M54.17 [facility] [address] [place] [phone] 01/25/2024 LINDA FARID retirement (current) use of opiate analgesic Z79.891 ; Spondylosis without myelopathy or radiculopathy, lumbar region M47.816 and Radiculopathy, lumbosacral region M54.17 [facility] [address] [place] [phone] 02/28/2024 LINDA FARID petroleum terminal plant operator (current) use of opiate analgesic Z79.891 ; Spondylosis without myelopathy or radiculopathy, lumbar region M47.816 and Radiculopathy, lumbosacral region M54.[address] [phone] 03/28/2024 LINDA FARID petroleum terminal plant operator (current) use of opiate analgesic Z79.891 ; Spondylosis without myelopathy or radiculopathy, lumbar region M47.816 and Radiculopathy, lumbosacral region M54.[address] [phone] 04/25/2024 LINDA FARID retirement (current) use of opiate analgesic Z79.891 ; Spondylosis without myelopathy or radiculopathy, lumbar region M47.816 and Radiculopathy, lumbosacral region M54.17 Assessments Encounter Date Diagnosis (ICD Code) Assessment Notes Treatment Notes Treatment Clinical Notes Section Notes 12/20/2023 petroleum terminal plant operator (current) use of opiate analgesic (ICD-10 - Z79.891) 01/03/2024 retirement (current) use of opiate analgesic (ICD-10 - Z79.891) 01/25/2024 petroleum terminal plant operator (current) use of opiate analgesic (ICD-10 - Z79.891) 02/21/2024 retirement (current) use of opiate analgesic (ICD-10 - Z79.891) 02/28/2024 petroleum terminal plant operator (current) use of opiate analgesic (ICD-10 - Z79.891) 03/28/2024 retirement (current) use of opiate analgesic (ICD-10 - Z79.891) 04/25/2024 petroleum terminal plant operator (current) use of opiate analgesic (ICD-10 - Z79.891) 04/25/2024 Spondylosis without myelopathy or radiculopathy, lumbar region (ICD-10 - M47.816) 03/28/2024 Spondylosis without myelopathy or radiculopathy, lumbar region (ICD-10 - M47.816) 02/28/2024 Spondylosis without myelopathy or radiculopathy, lumbar region (ICD-10 - M47.816) 01/25/2024 Spondylosis without myelopathy or radiculopathy, lumbar region (ICD-10 - M47.816) 12/20/2023 Spondylosis without myelopathy or radiculopathy, lumbar region (ICD-10 - M47.816) 12/20/2023 Radiculopathy, lumbosacral region (ICD-10 - M54.17) Regarding medication management, we checked the prescription monitoring program it was appropriate, and drug screen test done on 09/20/2023 was positive for oxycodone, and metabolites, we refilled the patient OxyContin and oxycodone for breakthrough pain,I ordered a urine drug screen test today to confirm complianceRegarding physical therapy, continue physical therapy exercisesRegarding interventional procedures, the patient has reported 90% relief of pain after the last transforaminal epidural steroid injection, the pain have subsided since the last visit so there is no need for interventions at this point the patient is reporting that she fell last year and she fell last week due to imbalances, she is doing better now that she has a cane 01/25/2024 Radiculopathy, lumbosacral region (ICD-10 - M54.17) Regarding medication management, we checked the prescription monitoring program it was appropriate, and drug screen test done on 12/20/2023 was positive for oxycodone, and metabolites, we refilled the patient OxyContin and oxycodone for breakthrough painpatient is traveling to [place] on 31 January so I refilled her 22 days instead so she can have her medications and doesn't run out, she recommended and requested Medrol Dosepak in case she develops an emergency while she is traveling she can take it so I direct that her not to take it unless it is neededRegarding physical therapy, continue physical therapy exercisesRegarding interventional procedures, the patient has reported 90% relief of pain after the last transforaminal epidural steroid injection, the pain have subsided since the last visit so there is no need for interventions at this point the patient is approved for the epidural steroid injection but the pain is under control today if the pain intensity increases down the road we will offer her the injection the patient is reporting that she fell last year and she fell last week due to imbalances, she is doing better now that she has a cane 02/28/2024 Radiculopathy, lumbosacral region (ICD-10 - M54.17) Regarding medication management, we checked the prescription monitoring program it was appropriate, and drug screen test done on 12/20/2023 was positive for oxycodone, and metabolites, we refilled the patient OxyContin and oxycodone for breakthrough painRegarding physical therapy, continue physical therapy exercisesRegarding interventional procedures, the patient is experiencing a flareup of pain in the right lower extremity she has approval for the transforaminal epidural steroid injection, she needs to get in touch with her patient portal representative regarding her blood thinners if holding it is appropriate we will offer her the injection 03/28/2024 Radiculopathy, lumbosacral region (ICD-10 - M54.17) Regarding medication management, we checked the prescription monitoring program it was appropriate, and drug screen test done on 12/20/2023 was positive for oxycodone, and metabolites, we refilled the patient OxyContin and oxycodone for breakthrough pain, I ordered a urine drug screen test to confirm compliance todayRegarding physical therapy, continue physical therapy exercisesRegarding interventional procedures, the patient is experiencing a flareup of pain in the right lower extremity she has approval for the transforaminal epidural steroid injection, she needs to get in touch with her patient portal representative regarding her blood thinners if holding it is appropriate we will offer her the injection, also the patient needs to finishes her antibiotic before the injection 04/25/2024 Radiculopathy, lumbosacral region (ICD-10 - M54.17) [...] I offered to referring her to an adolescent specialist but she is denying she is [...] the interventional procedures today Plan Of Treatment Pending Test Test Name Order Date MRI : Lumbar without contrast 08/18/2022 MRI : Lumbar without contrast 05/25/2022 PHENCYCLIDINE (PCP) QUANTITATIVE PHENCYCLIDINE (PCP) QUANTITATIVE PHENCYCLIDINE (PCP) QUANTITATIVE COCAINE QUANTITATIVE 12/21/2022 COCAINE QUANTITATIVE 09/15/2022 COCAINE QUANTITATIVE 02/23/2022 COCAINE QUANTITATIVE 05/25/2022 COCAINE QUANTITATIVE 03/15/2023 COCAINE QUANTITATIVE 06/07/2023 COCAINE QUANTITATIVE 09/20/2023 COCAINE QUANTITATIVE 12/20/2023 COCAINE QUANTITATIVE 03/28/2024 COCAINE QUANTITATIVE 04/05/2024 COCAINE QUANTITATIVE 04/25/2024 OXYCODONE QUANTITATIVE 04/05/2024 OXYCODONE QUANTITATIVE 03/28/2024 OXYCODONE QUANTITATIVE 04/25/2024 OXYCODONE QUANTITATIVE 09/20/2023 OXYCODONE QUANTITATIVE 12/20/2023 OXYCODONE QUANTITATIVE 06/07/2023 OXYCODONE QUANTITATIVE 03/15/2023 OXYCODONE QUANTITATIVE 12/21/2022 OXYCODONE QUANTITATIVE 02/23/2022 OXYCODONE QUANTITATIVE 05/25/2022 OXYCODONE QUANTITATIVE 09/15/2022 AMPHETAMINES QUANTITATIVE 09/15/2022 AMPHETAMINES QUANTITATIVE 05/25/2022 AMPHETAMINES QUANTITATIVE 02/23/2022 BARBITURATES QUANTITATIVE 12/21/2022 BARBITURATES QUANTITATIVE 03/15/2023 BARBITURATES QUANTITATIVE 06/07/2023 BARBITURATES QUANTITATIVE 03/28/2024 BARBITURATES QUANTITATIVE 12/20/2023 BARBITURATES QUANTITATIVE 04/05/2024 BARBITURATES QUANTITATIVE 04/25/2024 METHADONE QUANTITATIVE 04/25/2024 METHADONE QUANTITATIVE 04/05/2024 METHADONE QUANTITATIVE 03/28/2024 METHADONE QUANTITATIVE 12/20/2023 METHADONE QUANTITATIVE 06/07/2023 METHADONE QUANTITATIVE 12/21/2022 METHADONE QUANTITATIVE 03/15/2023 METHADONE QUANTITATIVE 09/15/2022 METHADONE QUANTITATIVE 02/23/2022 METHADONE QUANTITATIVE 05/25/2022 MDMA (ECSTASY) QUANTITATIVE 05/25/2022 MDMA (ECSTASY) QUANTITATIVE 02/23/2022 MDMA (ECSTASY) QUANTITATIVE 09/15/2022 MDMA (ECSTASY) QUANTITATIVE 12/21/2022 MDMA (ECSTASY) QUANTITATIVE 03/15/2023 MDMA (ECSTASY) QUANTITATIVE 06/07/2023 MDMA (ECSTASY) QUANTITATIVE 12/20/2023 MDMA (ECSTASY) QUANTITATIVE 04/05/2024 MDMA (ECSTASY) QUANTITATIVE 03/28/2024 MDMA (ECSTASY) QUANTITATIVE 04/25/2024 6-ACETYLMORPHINE QUANTITATIVE 04/25/2024 6-ACETYLMORPHINE QUANTITATIVE 04/05/2024 6-ACETYLMORPHINE QUANTITATIVE 03/28/2024 6-ACETYLMORPHINE QUANTITATIVE 12/20/2023 TRAMADOL QUANTITATIVE 12/20/2023 TRAMADOL QUANTITATIVE 06/07/2023 TRAMADOL QUANTITATIVE 03/15/2023 TRAMADOL QUANTITATIVE 12/21/2022 TRAMADOL QUANTITATIVE 09/15/2022 TRAMADOL QUANTITATIVE 05/25/2022 TRAMADOL QUANTITATIVE 02/23/2022 TRAMADOL QUANTITATIVE 03/28/2024 TRAMADOL QUANTITATIVE 04/05/2024 TRAMADOL QUANTITATIVE 04/25/2024 FENTANYL QUANTITATIVE 04/25/2024 FENTANYL QUANTITATIVE 04/05/2024 FENTANYL QUANTITATIVE 05/25/2022 FENTANYL QUANTITATIVE 02/23/2022 FENTANYL QUANTITATIVE 09/15/2022 FENTANYL QUANTITATIVE 12/21/2022 FENTANYL QUANTITATIVE 03/15/2023 FENTANYL QUANTITATIVE 06/07/2023 FENTANYL QUANTITATIVE 03/28/2024 FENTANYL QUANTITATIVE 12/20/2023 FENTANYL QUANTITATIVE 09/20/2023 BUPRENORPHINE QUANTITATIVE 12/20/2023 BUPRENORPHINE QUANTITATIVE 03/28/2024 BUPRENORPHINE QUANTITATIVE 06/07/2023 BUPRENORPHINE QUANTITATIVE 03/15/2023 BUPRENORPHINE QUANTITATIVE 12/21/2022 BUPRENORPHINE QUANTITATIVE 09/15/2022 BUPRENORPHINE QUANTITATIVE 02/23/2022 BUPRENORPHINE QUANTITATIVE 05/25/2022 BUPRENORPHINE QUANTITATIVE 04/05/2024 BUPRENORPHINE QUANTITATIVE 04/25/2024 BENZODIAZEPINE QUANTITATIVE 04/25/2024 BENZODIAZEPINE QUANTITATIVE 04/05/2024 BENZODIAZEPINE QUANTITATIVE 05/25/2022 BENZODIAZEPINE QUANTITATIVE 02/23/2022 BENZODIAZEPINE QUANTITATIVE 09/15/2022 BENZODIAZEPINE QUANTITATIVE 12/21/2022 BENZODIAZEPINE QUANTITATIVE 03/15/2023 BENZODIAZEPINE QUANTITATIVE 06/07/2023 BENZODIAZEPINE QUANTITATIVE 03/28/2024 BENZODIAZEPINE QUANTITATIVE 12/20/2023 BENZODIAZEPINE QUANTITATIVE 09/20/2023 OPIATES QUANTITATIVE 09/20/2023 OPIATES QUANTITATIVE 06/07/2023 OPIATES QUANTITATIVE 12/20/2023 OPIATES QUANTITATIVE 03/15/2023 OPIATES QUANTITATIVE 12/21/2022 OPIATES QUANTITATIVE 09/15/2022 OPIATES QUANTITATIVE 05/25/2022 OPIATES QUANTITATIVE 02/23/2022 OPIATES QUANTITATIVE 03/28/2024 OPIATES QUANTITATIVE 04/05/2024 OPIATES QUANTITATIVE 04/25/2024 ANTICONVULSANT QUANTITATIVE 02/23/2022 ANTICONVULSANT QUANTITATIVE 05/25/2022 ANTICONVULSANT QUANTITATIVE 09/15/2022 MUSCLE RELAXANT, QUANTITATIVE 12/21/2022 MUSCLE RELAXANT, QUANTITATIVE 03/15/2023 MUSCLE RELAXANT, QUANTITATIVE 06/07/2023 MUSCLE RELAXANT, QUANTITATIVE 12/20/2023 MUSCLE RELAXANT, QUANTITATIVE 03/28/2024 MUSCLE RELAXANT, QUANTITATIVE 04/25/2024 MUSCLE RELAXANT, QUANTITATIVE 04/05/2024 CATHINONES(BATH SALT) QUANTITATIVE 09/15 CATHINONES(BATH SALT) QUANTITATIVE 05/25 CATHINONES(BATH SALT) QUANTITATIVE 02/23 SLEEP AID QUANTITATIVE 02/23/2022 SLEEP AID QUANTITATIVE 05/25/2022 SLEEP AID QUANTITATIVE 09/15/2022 METHYLPHENIDATE 09/15/2022 METHYLPHENIDATE 05/25/2022 METHYLPHENIDATE 02/23/2022 TAPENTADOL PANEL 02/23/2022 TAPENTADOL PANEL 05/25/2022 TAPENTADOL PANEL 09/15/2022 MERPERIDINE PANEL 09/15/2022 MERPERIDINE PANEL 02/23/2022 MERPERIDINE PANEL 05/25/2022 Amphetamine 12/21/2022 Amphetamine 03/28/2024 Amphetamine 12/20/2023 Amphetamine 09/20/2023 Amphetamine 06/07/2023 Amphetamine 03/15/2023 Amphetamine 04/05/2024 Amphetamine 04/25/2024 Buprenorphine 09/20/2023 CREATININE 12/20/2023 CREATININE 03/28/2024 CREATININE 06/07/2023 CREATININE 09/20/2023 CREATININE 09/15/2022 CREATININE 02/23/2022 CREATININE 05/25/2022 CREATININE 04/25/2024 CREATININE 04/05/2024 Carisoprodol 05/25/2022 Carisoprodol 02/23/2022 Carisoprodol 09/15/2022 LAB REPORT 05/25/2022 LAB REPORT 09/15/2022 LAB REPORT 02/23/2022 LAB REPORT 09/20/2023 LAB REPORT 06/07/2023 LAB REPORT 12/21/2022 LAB REPORT 03/15/2023 LAB REPORT 03/28/2024 LAB REPORT 12/20/2023 LAB REPORT 04/05/2024 LAB REPORT 04/25/2024 PLANO DRUG PANEL,UR 11/26/2021 PLANO DRUG PANEL,UR 05/25/2022 PLANO DRUG PANEL,UR 09/15/2022 PLANO DRUG PANEL,UR 06/07/2023 Insurance Providers Payer Name Payer Address Payer Phone Subscriber Number Group Number Insured Name Patient Relationship to Insured Coverage Start Date Coverage End Date Aetna Medicare PPO [address] MIKE Muhammad [phone] [id number] ALLEN CARRERA Self - patient is the insured 4 [employer] of [place] [address] [place] [address] [id number] ALLEN CARRERA Self - patient is the insured Medical (General) History Medical History History ICD Code TIA Chronic low back pain HTN Hx of Asthma Anxiety and depressed mood urgent care for fall Surgical History Surgery Date(Month/Year) DNC procedure that was done in 2000 and had complications and has been on disability since laprascopy 2 Hospitalization History Reason Date(Month/Year) ER FOR ANIETY HAD A BAD FALL HIT HER HEA D AND PASSED OUT 04/23/24 er for vomitting all day- gave zofran an d sent home- unsure of cause 09/02/2020 in hospital for entire month of may for gallbladder and pancreas stones and cysts 05/2020
--- OUTSIDE RECORDS SUMMARY | 2024-12-20 16:36 | XMS_ITS | Referral Summary ---
Author Organization [facility] Address [address] [place] [address] Care Team Providers Care Educator Senior Clinical Name Role Phone Stella Figueroa Primary Care Provider [phone] Allergies Active Allergy Reactions Criticality Noted Date Comments Latex Hives 12/07/2022 hives/sores Medications albuterol (PROAIR HFA,VENTOLIN HFA) 90 mcg inhaler Inhale 2 puffs by mouth every 4 hours as needed. 12/03/2022 Active lidocaine (LIDODERM) 5% patch 10/23/2022 Active Creon 36,000-114,000- 180,000 unit capsule Take 1 capsule by mouth 3 times a day. 09/29/2022 Active methocarbamoL (ROBAXIN) 500 mg tablet Take 500 mg by mouth every 8 hours. 11/03/2022 Active mirtazapine (REMERON) 7.5 mg tablet Take 7.5 mg by mouth nightly. 11/19/2022 Active oxyCODONE IR (ROXICODONE) 5 mg tablet Take 5 mg by mouth every 8 hours. 12/05/2022 Active OxyCONTIN 10 mg tablet Take 10 mg by mouth every 8 hours. 11/23/2022 Active prazosin (MINIPRESS) 1 mg capsule Take 1 mg by mouth nightly. 11/19/2022 Active tiZANidine (ZANAFLEX) 4 mg tablet Take 4-8 mg by mouth nightly. 10/14/2022 Active traZODone (DESYREL) 100 mg tablet Take 200 mg by mouth nightly. 08/14/2022 Active venlafaxine (EFFEXOR) 37.5 mg tablet Take 37.5 mg by mouth nightly. 10/18/2022 Active apixaban (ELIQUIS) 2.5 mg tablet Take by mouth every 12 hours. Active Active Problems Problem Noted Date Diagnosed Date History of substance use 12/07/2022 Intractable vomiting with nausea 12/07/2022 Hypertension 12/07/2022 Chronic pain 12/07/2022 Anxiety 12/07/2022 Alcohol abuse 12/07/2022 Pseudocyst of pancreas 12/07/2022 Pancreatitis 12/07/2022 Cellulitis of left upper limb 03/10/2022 Unspecified fall, initial encounter 03/10/2022 Contusion of left forearm 03/06/2022 Cellulitis 03/06/2022 Social History Tobacco Use Types Packs/Day Years Used Date Smoking Tobacco: Every Day Cigarettes Smokeless Tobacco: Never Tobacco Cessation:Ready to Q uit: Not Asked; Counseling Given: Not Answered Comments Unknown Sex and Gender Information Value Date Recorded Sex Assigned at Not on file Legal Sex Female 3:15 PM EST Gender Identity Not on file Sexual Orientation Not on file Last Filed Vital Signs Vital Sign Reading Time Taken Comments Blood Pressure - - Pulse - - Temperature - - Respiratory Rate - - Oxygen Saturation - - Inhaled Oxygen Concentration - - Weight 67.1 kg (148 lb) 12/07/2022 12:53 PM EST Height 165.1 cm (5' 5 ) 12/07/2022 12:53 PM EST Body Mass Index 24.63 12/07/2022 12:53 PM EST Plan of Treatment Not on file Insurance [employer] OUT OF STATE PPO Care Teams Educator Senior Clinical Relationship Specialty Start Date End Date Stella Figueroa [address] [place] [id number] PCP - General Internal Medicine 10/06/22
--- OUTSIDE RECORDS SUMMARY | 2024-12-20 16:36 | XMS_ITS | Clinical Summary ---
Author Organization [facility] [address] [facility] Address [address] [place] [address] Phone Care Team Providers Care Apparel Designer Name Role Phone Stella Figueroa MD Primary Care Provider [phone] Allergies Active Allergy Reactions Criticality Noted Date Comments Latex 08/12/2021 Medications atorvastatin (LIPITOR) 10 mg tablet Take 1 Tablet by mouth daily for 360 days. 2024 Active cholecalciferol (VITAMIN D-3) 50 mcg (2,000 unit) capsule Take 1 capsule (2,000 Units total) by mouth 1 (one) time each day. Active cloNIDine (CATAPRES) 0.3 mg tablet Take 1 tablet (0.3 mg total) by mouth 2 (two) times a day. Active lidocaine (LIDODERM) 5 % patch Place 1 Patch onto the skin every 24 hours. Apply for no more than 12 hours in any 24 hour period. Active pancrelipase, Azu-Mwmm-Ztqn, (Creon) 12,000-38,000 -60,000 unit capsule Take 2 capsules (24,000 Units total) by mouth 1 (one) time each day. Active methylnaltrexone (Relistor) 150 mg tablet Take 150 mg by mouth 3 times daily. Active mirtazapine (REMERON) 30 mg tablet Take 1 Tablet by mouth at bedtime. Active oxyCODONE (ROXICODONE) 5 mg immediate release tablet Take 1 tablet by mouth three times daily as needed for pain for 7 days. Active prazosin (MINIPRESS) 2 mg capsule Take 2 Capsules by mouth at bedtime. Active predniSONE (DELTASONE) 20 mg tablet 3 tab for 3 days,2 tab for 3 days,1 tab for 3 days Active senna (SENOKOT) 8.6 mg tablet Take 2 tablets by mouth at bedtime. Active traZODone (DESYREL) 100 mg tablet Take 100 mg by mouth 2 times daily. Active venlafaxine XR (EFFEXOR-XR) 150 mg 24 hr capsule Take 1 capsule (150 mg total) by mouth 1 (one) time each day. Active venlafaxine XR (EFFEXOR-XR) 75 mg 24 hr capsule Take 1 capsule (75 mg total) by mouth 1 (one) time each day. Active cyanocobalamin (VITAMIN B-12) 500 mcg tablet Take 1 Tablet by mouth daily for 360 days. 024 2024 Active albuterol HFA (Ventolin HFA) 90 mcg/actuation inhaler Inhale 2 Puffs into the lungs every 4 hours as needed for Cough or Wheezing for up to 30 days. Active polyethylene glycol (MIRALAX) 17 gram packetIndications :Other constipation Take 17 g by mouth 1 (one) time each day. 510 g 11 024 2024 Active metoclopramide (REGLAN) 5 mg tablet TAKE 1 TABLET BY MOUTH THREE TIMES DAILY NEEDED FOR NAUSEA OR VOMITING 90 tablet 1 Active dicyclomine (BENTYL) 10 mg capsuleIndication s:Nausea and vomiting, unspecified vomiting type TAKE 1 CAPSULE BY MOUTH THREE TIMES A DAY IF NEEDED FOR ABDOMINAL DISCOMFORT 60 capsule 1 025 Active pantoprazole (PROTONIX) 40 mg EC tablet Take 1 tablet (40 mg total) by mouth 1 (one) time each day. 30 tablet 1 025 Active ondansetron ODT (ZOFRAN-ODT) 4 mg disintegrating tabletIndications :Nausea and vomiting, unspecified vomiting type Dissolve 1 tablet (4 mg total) on top of the tongue every 8 (eight) hours if needed for nausea or vomiting. for nausea 30 tablet 2 025 2024 Active dicyclomine (BENTYL) 10 mg capsuleIndication s:Nausea and vomiting, unspecified vomiting type Take 1 capsule (10 mg total) by mouth 3 (three) times a day if needed (for abdominal discomfort). 60 capsule 3 024 2024 Discontinued pantoprazole (PROTONIX) 40 mg EC tablet TAKE 1 TABLET BY MOUTH DAILY 30 tablet 1 024 2024 Discontinued(R eorder) ondansetron ODT (ZOFRAN-ODT) 4 mg disintegrating tabletIndications :Nausea and vomiting, unspecified vomiting type DISSOLVE 1 TABLET ON THE TONGUE EVERY 8 HOURS NEEDED FOR NAUSEA 30 tablet 1 025 2024 Discontinued(R eorder) Active Problems Problem Noted Date Diagnosed Date Nausea with vomiting, unspecified 09/04/2024 Overview (09/04/2024): 11/2023 C+E unremarkable 04/2024 CT scan unremarkable 10/2023 MRI revealing stable ductal dilation (s/p flavia) 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 Pseudocyst-unchanged from imaging in 07/2020 Assessment & Plan (09/04/2024 6:06 PM EST): Recommended ED visit if unable to tolerate PO. Continue zofran as needed Will attempt to move up MRI sooner. Continue senna and relistor daily to promote bowel movements. Alcohol dependence in remission 08/12/2021 Asthma 08/12/2021 Chronic pancreatitis 08/12/2021 Hyperlipidemia 08/12/2021 Insomnia 08/12/2021 Major depressive disorder, single episode, unspe cified 08/12/2021 Mononeuropathy of right lower extremity 08/12/20 21 Other constipation 08/12/2021 Pseudocyst of pancreas 08/12/2021 Encounters Date Type Department Care Team Description 10/17/2024 Telephone Gastroenterology - [address] [facility] [address] [place] [address] Marisela Garcia PA 10/13/2024 Telephone Gastroenterology - [address] [facility] [address] [place] [address] Jul[address] [place] from Last 3 Months Immunizations Name Administration Dates Next Due Bulbstorm SARS-CoV-2 COVID-19, mRNA, LNP-S, preservative free 01/27/2021,01/06/2021 Surgical History Surgery Date Site/Laterality Comments OTHER SURGICAL HISTORY 2019 PROCEDURE: [place] DILATION & CURETTAGE DX&/THER NONOBSTETRIC Medical History Medical History Date Comments Nerve damage DX:Nerve damage; COMMENT: from surgery completed in treatment of endometriosis Stroke (CMS/HCC) DX:Stroke (HCC) HTN (hypertension) DX:HTN (hyper tension) History of endometriosis DX:Hist ory of endometriosis Family History Medical History Relation Name Comments Liver disease Father Diabetes Maternal Grandfather Dementia Maternal Grandmother Colon cancer Mother Lung cancer Mother Other cancer Paternal Grandfather Relation Name Status Comments Brother x2 Alive Father Maternal Grandfather Maternal Grandmother Mother Paternal Grandfather Paternal Grandmother Sister x Alive Social History Tobacco Use Types Packs/Day Years Used Date Smoking Tobacco: Former Smokeless Tobacco: Never Alcohol Use Standard Drinks/Week Comments Yes 0 (1 standard drink = 0.6 oz pur e alcohol) Comments Unknown Sex and Gender Information Value Date Recorded Sex Assigned at Not on file Legal Sex Female 3:06 AM EST Gender Identity Not on file Sexual Orientation Not on file Obstetrics History Last Filed Vital Signs Vital Sign Reading Time Taken Comments Blood Pressure 118/68 06/19/2024 9:38 AM EDT Sit ting L Arm Pulse 78 06/19/2024 9:38 AM EDT Temperature - - Respiratory Rate - - Oxygen Saturation - - Inhaled Oxygen Concentration - - Weight 72.6 kg (160 lb) 09/11/2024 1:39 PM EST Height 165.1 cm (5' 5 ) 09/04/2024 1:43 PM EST Body Mass Index 26.63 09/04/2024 1:43 PM EST Plan of Treatment Health Maintenance Due Date Last Done Comments Breast Cancer Screening 1967 DTaP,Tdap,and Td Vaccines (1 - Tdap) 1986 Hepatitis A Vaccines (1 of 2 - Risk 2-dose series) 1986 Hepatitis B Vaccines (1 of 3 - 19+ 3-dose series) 1986 Pneumococcal Vaccine: 50+ Years (1 of 2 - PCV) 1986 Pneumococcal Vaccine: Pediatrics (0 to 5 Years) and At-Risk Patients (6 to 64 Years) (1 of 2 - PCV) 1986 Zoster Vaccines (1 of 2) 2017 Colorectal Cancer Screening: Colonoscopy 10/04/2022 Depression Screening 10/04/2022 HIV Screening 10/04/2022 Medicare Annual Wellness Visit 10/04/2022 Social Influencers of Health Screening 10/04/2022 COVID-19 Vaccine (3 - 2023-2 5 season) 2024 01/27/2021, 01/06/2021 Influenza Vaccine (#1) 2024 Hypertension/CHF/CAD Annual BMP Blood Test 06/08/2025 06/08/2024, 06/08/2024 Cervical Cancer Screening: HPV 08/12/2026 08/12/2021 Cholesterol Screening (Lipid Panel) 06/08/2029 06/08/2024, 06/08/2024 Hepatitis C Screening Completed 06/08/2024 HIB Vaccines Aged Out No longer eligi ble based on patient's age to complete this topic HPV Vaccines Aged Out No longer eligi ble based on patient's age to complete this topic IPV Vaccines Aged Out No longer eligi ble based on patient's age to complete this topic MMR Vaccines Aged Out No longer eligi ble based on patient's age to complete this topic Meningococcal ACWY Vaccine Aged Out N o longer eligible based on patient's age to complete this topic Meningococcal B Vacine Aged Out No lo nger eligible based on patient's age to complete this topic RSV Immunization Patients Under 20 months Aged Out No longer eligible b ased on patient's age to complete this topic Varicella Vaccines Aged Out No longer eligible based on patient's age to complete this topic Procedures Procedure Name Priority Date/Time Associated Diagnosis Comments HEPATITIS C SCREENING Routine 06/08/2024 ANNUAL BMP BLOOD TEST Routine 06/08/2024 LIPID PANEL Routine 06/08/2024 HPV Routine 08/12/2021 from Last 3 Months or Most Recently Relevant to Health Maintenance Results * Annual BMP Blood Test (06/08/2024) Annual BMP Blood Test abstracted us Historical Provider MD HEALTH MAINTENANCE Final Result * Hepatitis C Screening (06/08/2024) Pathologist [facility] Hepatitis C Screening abstracted [facility] Provider HEALTH MAINTENANCE Final Result * (ABNORMAL) Lipid panel (06/08/2024) [facility] LDL/HDL Ratio 3 0 - 4 Triglycerides 126 0 - 150 mg/dL Cholesterol 212(A) 0 - 200 mg/dL HDL 64 >=40 mg/dL LDL Cholesterol 123(A) 0 - 100 mg/dL Blood Venous blood specimen / Unknown [facility] Provider LAB BLOOD ORDERABLES Ave l Result * Cervical Cancer Screening: HPV (08/12/2021) [facility] Cervical Cancer Screening: HPV negative, abstracted [facility] Provider HEALTH MAINTENANCE Final Result from Last 3 Months or Most Recently Relevant to Health Maintenance Insurance [place]ICA[place] - [place] AETNA MEDICARE ADVANTAGE Advance Directives Documents on File Type Date Recorded Patient Refractory Repairer Expl anation Health Care Decision (hx) 08/11/2018 AD BURNS DIRECTIVE Health Care Decision (hx) 08/11/2018 AD BURNS DIRECTIVE Health Care Decision (hx) 08/11/2018 AD BURNS DIRECTIVE Health Care Decision (hx) 08/11/2018 AD BURNS DIRECTIVE Health Care Decision (hx) 08/11/2018 AD BURNS DIRECTIVE Health Care Decision (hx) 08/11/2018 AD BURNS DIRECTIVE Health Care Decision (hx) 08/11/2018 AD BURNS DIRECTIVE Health Care Decision (hx) 08/11/2018 AD BURNS DIRECTIVE Health Care Decision (hx) 08/11/2018 AD BURNS DIRECTIVE Health Care Decision (hx) 08/11/2018 AD BURNS DIRECTIVE Health Care Decision (hx) 08/11/2018 AD BURNS DIRECTIVE Health Care Decision (hx) 08/11/2018 AD BURNS DIRECTIVE Health Care Decision (hx) 08/11/2018 AD BURNS DIRECTIVE Health Care Decision (hx) 08/11/2018 AD BURNS DIRECTIVE Health Care Decision (hx) 08/11/2018 AD BURNS DIRECTIVE Health Care Decision (hx) 08/11/2018 AD BURNS DIRECTIVE Health Care Decision (hx) 08/11/2018 AD BURNS DIRECTIVE Care Teams Apparel Designer Relationship Specialty Start Date End Date Stella Figueroa MD [address] [place] [phone] PCP - General Internal Medicine 08/10/18
--- OUTSIDE RECORDS SUMMARY | 2024-12-20 16:36 | XMS_ITS ---
Author Organization [facility] Address [address] [place] [address] Care Team Providers Care Post Closer Name Role Phone Henry GRIMES, [facility] Primary Care Provider CHACHO Mejia Unavailable [phone] Medications Medication SIG (Take, Route, Frequency, Duration) Notes Start Date End Date Status Acyclovir 200 MG 1 capsule Orally Three times a day Active Cane - as directed Active Lidocaine 5 % 1 patch remove after 12 hours Externally Once a day for 30 days Active diazePAM 5 MG 1 tablet as needed Orally every 8 hours Not-Taking Pantoprazole Sodium 40 MG 1 tablet Orally Once a day Active Amitiza 24 MCG 1 capsule with food and water Orally Twice a day for 30 day(s) 02/14/2020 Not-Taking Atomoxetine HCl 80 MG Orally Once a day Not-Taking Naproxen 500 MG 1 tablet with food or milk Orally Twice a day Not-Taking DULoxetine HCl 40 MG 1 capsule Orally Once a day Not-Taking Ventolin HFA 108 (90 [...] 12 hrs for 30 days 02/24/2023 Active Skelaxin 800 MG 1 tablet Orally Three times a day for 30 day(s) 02/26/2022 Active Narcan 4 MG/0.1ML as directed, after use immediately call 911 Nasally as needed for 30 days 03/04/2021 Active busPIRone HCl 10 MG 1 tablet Orally Twice a day Active Senna 8.6 MG 2 tablets at bedtime as needed Orally Once a day for 30 day(s) 07/29/2020 Active tiZANidine HCl 4 MG TAKE 1 TO 2 TABLETS BY MOUTH EVERY NIGHT AT BEDTIME for 30 Active Polyethylene Glycol 3350 17 GM/SCOOP as directed Orally Once a day for 30 days 07/29/2020 Active Albuterol Sulfate 2 puffs Inhalation as needed Active traZODone HCl 50 MG 1 tablet Orally BID Active hydrOXYzine HCl 25 MG 1 tablet as needed Orally TID Active Eliquis 2.5 MG as directed Orally Active clonazePAM 0.5 MG 1 tablet Orally Once a day Active Encounters Encounter Location Date Provider Diagnosis [facility] [address] [place] [phone] 05/29/2024 CHACHO PRICE Plan Of Treatment No Information Progress Notes * ALLEN CARRERA ADOB:[birth year] (59 yo F)Acc No.[id number]:05/29/2024 Progress Notes Patient:?ALLEN CARRERA Provider:?Chacho Price MD :1965???Age:59 Y???Sex:Female D ate:05/29/2024 Address:[address] [place], [place] [id number] Pcp:Stella Figueroa MD Subjective: * Chief Complaints: * ??? * Medical History:? * Medications:?Taking Lidocain e 5 % Patch 1 patch remove after 12 hours Externally Once a day , Taking Cane - Miscellaneous as directed , Taking Acyclovir 200 MG Capsule 1 capsule Orally Three times a day , Taking Pantoprazole Sodium 40 MG Tablet Delayed Release 1 tablet Orally Once a day , Taking clonazePAM 0.5 MG Tablet 1 tablet Orally Once a day , Taking Eliquis 2.5 MG Tablet as directed Orally , Taking hydrOXYzine HCl 25 MG Tablet 1 tablet as needed Orally TID , Taking traZODone HCl 50 MG Tablet 1 tablet Orally BID , Taking Albuterol Sulfate 2 puffs Inhalation as needed , Taking Polyethylene Glycol 3350 17 GM/SCOOP Powder as directed Orally Once a day , Taking Senna 8.6 MG Tablet 2 tablets at bedtime as needed Orally Once a day , Taking busPIRone HCl 10 MG Tablet 1 tablet Orally Twice a day , Taking Narcan 4 MG/0.1ML Liquid as directed, after use immediately call 911 Nasally as needed , Taking Skelaxin 800 MG Tablet 1 tablet Orally Three times a day , Taking tiZANidine HCl 4 MG Tablet TAKE 1 TO 2 TABLETS BY MOUTH EVERY NIGHT AT BEDTIME , Taking Xtampza ER 13.5 MG Capsule ER 12 Hour Abuse-Deterrent 1 capsule with food Orally every 12 hrs , Taking Lidocaine 5 % Patch APPLY 1 PATCH TOPICALLY EVERY DAY, REMOVE AFTER 12 HOURS , Taking Methocarbamol 500 MG Tablet TAKE 1 TABLET BY MOUTH EVERY 8 HOURS , Taking OxyCONTIN 15 MG Tablet ER 12 Hour Abuse-Deterrent 1 tablet Orally every 12 hrs , Taking OxyCONTIN 15 MG Tablet ER 12 Hour Abuse-Deterrent 1 tablet Orally every 8 hrs , Notes to Pharmacist: M47.816 Lumbar spondylosis, the patient can request partial refill, Taking methylPREDNISolone 4 MG Tablet Therapy Pack as directed Orally 6 days take as directed, Not-Taking/PRN Citalopram Hydrobromide , Not-Taking/PRN Atomoxetine HCl 40 MG Capsule 1 capsule Orally Twice a day , Not-Taking/PRN rOPINIRole HCl 1 MG Tablet 1 tablet Orally Once a day , Not-Taking/PRN Lisinopril 20 MG Tablet 1 tablet Orally Once a day , Not-Taking/PRN Ventolin HFA 108 (90 Base) MCG/ACT Aerosol Solution 2 puffs Inhalation every 4 hrs , Not-Taking/PRN DULoxetine HCl 40 MG Capsule Delayed Release Particles 1 capsule Orally Once a day , Not-Taking/PRN Naproxen 500 MG Tablet 1 tablet with food or milk Orally Twice a day , Not-Taking/PRN Atomoxetine HCl 80 MG Capsule Orally Once a day , Not-Taking/PRN Amitiza 24 MCG Capsule 1 capsule with food and water Orally Twice a day , Not-Taking/PRN diazePAM 5 MG Tablet 1 tablet as needed Orally every 8 hours Objective: * Vitals:? Assessment: Plan: * Treatment: * * Electronic signature of RANULFO ELIZALDE MD on 12/20/2024 at 04:35 PM EST Sign off status: Pending * Provider:?Chacho Price MD Date:? 024 Generated for Henna vitale/Irina/Riccardo on:?12/20/2024 04:35 PM EST
--- OUTSIDE RECORDS SUMMARY | 2024-12-20 16:36 | XMS_ITS ---
Author Organization [facility] Address [address] [place] [phone] Care Team Providers Care Switch Foreman Name Role Phone Henry GRIMES, Stella Primary Care Provider Unavailab LINDA Ryan Unavailable [phone] Encounters Encounter Location Date Provider Diagnosis [facility] [address] [place] [phone] 04/05/2024 LINDA PRICE Plan Of Treatment No Information Progress Notes * ALLEN CARRERA ADOB:[birth year] (59 yo F)Acc No.[id number]:04/05/2024 Patient:?ALLEN CARRERA :1965???Age:58 Y???Sex:Female Address:[address] [place] [address], [address] * * Date:?
--- OUTSIDE RECORDS SUMMARY | 2024-12-20 16:36 | XMS_ITS | Clinical Summary ---
Author Organization [facility] Address [address] [place] [address] Care Team Providers Care Geospatial Applications Developer Name Role Phone Stella Figueroa Primary Care Provider [phone] Allergies Active Allergy Reactions Criticality Noted Date [...] 12/07/2022 12:53 PM EST Plan of Treatment Health Maintenance Due Date Last Done Comments Basic Metabolic Panel 1967 Cervical Cancer Screening 1967 Cologuard 1967 Colon Cancer Screening 1967 Colonoscopy 1967 FOBT / Fit Test 1967 HIV Screening 1967 HPV and Pap Smear 1967 Hepatitis C Screening 1967 Pap Smear 1967 Sigmoidoscopy 1967 Pneumococcal Vaccine: Pediat dee (0-5 Years) and At-Risk Patients (6-50 Years) (1 of 2 - PCV) 1973 Hepatitis B Vaccines (1 of 3 - 19+ 3-dose series) 05/01 Pneumococcal Vaccine: 50+ Years (1 of 2 - PCV) 986 DTaP,Tdap,and Td Vaccines (1 - Tdap) [address] Lung Cancer Screening (Baseline) 2017 Zoster Vaccines (1 of 2) 2017 COVID-19 Vaccine (2023-25 season) 2024 Influenza Vaccine (#1) 2024 Alcohol/Substance Use Screening 11/01/2024 Depression Screening and Follow-Up 11/01/2024 Social Drivers of Health Annual Screening 11/01/2024 RSV Vaccine (60+ years old a nd patients) (1 - 1-dose 75+ series) 2042 Insurance BCBS OUT OF STATE PPO Care Teams Geospatial Applications Developer Relationship Specialty Start Date End Date Stella Figueroa [address] [place] [phone] PCP - General Internal Medicine 10/06/22
[2024-12-20 17:47] LABS: Erythrocyte Sedimentation Rate 9 MM/HR (0-20)
[2024-12-20 17:58] LABS: Rheumatoid Factor < 13.0 IU/mL (<15.0)
[2024-12-21 09:49] LABS: Lyme Abs Screen <0.90 index
[2024-12-24 16:03] LABS: Treponema pallidum Ab FTA ABS Nonreactive (Nonreactive)
== END 2024-12-20 16:30 | disposition home or self-care (01) ==
LOC: HO.LAB 16:29
PROVIDERS: PCP Internal Medicine; Visit Provider Psychiatry & Neurology Neurology
DX: G89.29 Other chronic pain (principal)
CPT/HCPCS: 36415; 82550; 85652; 86431; 86617; 86618; 86780

== ENCOUNTER 2025-01-11 12:58 | Outpatient (AMB) | payer MEDICARE, SELFPAY ==
--- NOTE | 2025-01-10 10:53 | MHC.OFFVIS ---
Intake Visit Reasons: Chronic Pain/med from 12/28 Coding
--- NOTE | 2025-01-11 13:03 | MHC.OFFVIS ---
Vital Signs 01/11/25 13:05 Height 5 ft 5 in Weight 182 lb 8 oz BMI 30.4 BP 135/61 Blood Pressure Location Lt brachial Position Sitting Pulse 62 Pulse Source Pulse Oximeter Pulse Oximetry (%) 98 Oxygen Delivery Method Room Air Intake Visit Reasons: Chronic Pain/med from 12/28 Allergies baclofen Allergy (Severe, Verified 01/11/25 13:07) black out HPI Comments Details: Jeannine is very pleasant 59 years old female who presents in my office with complains on pain in the right groin with radiation of the pain into the right thigh on inner side right lower leg and into the ankle as well as into the big toe. According to the patient her pain started in 1997 she thinks that the surgery cause her problem. She went for D&C procedure on 02/19/1998 after the procedure she came home and faint it when she woke up she was no able to stand up and her right leg gave under her. 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 Since then she is suffering from pain described above. she is unable to sleep normally, she can not do activities of daily living, she can take care of herself but she can not function normally. She is on temporary disability. She reports that heat and cold applications weather changes in movements aggravate her pain. In terms of tissue damage he reports her pain as pulsing and pounding, shooting, stabbing and lancinating, sharp and lacerating, pinching and crushing, tugging and wrenching, hot burning and searing, aching and heavy, tiring and exhausting, sickening and suffocating, punishing and killing, spreading radiating and piercing. She was referred to this office by Dr. Maher, the neurologist, she had EMG performed by Dr. Maher results of which were normal. She had MRI of the lumbar spine performed in [facility] and the results of this MRI are not available for me. She had extensive physical therapy many years enrolled 2004, 2005, 2006, in 2007 she had aquatic pool therapy, she was under care of pain specialist in [facility], she received some injections in her back as well as radiofrequency ablation. She reported no help from the radiofrequency ablation. She also had a trial of spinal cord stimulator in 1999, she reported that trial of spinal cord stimulator caused aggravation of her pain. Her past medical history significant for hypertension, history of mini stroke, history of asthma, history of pancreatic cyst and pancreatitis, she is suffering from IBS and severe constipation. Past surgical history is described as above. Social history she is disabled individual, she admits smoking cigarettes 1/2 a pack a day, she denies drinking alcohol she drinks coffee and caffeinated beverages and she denies recreational drugs. [facility] Surgical History (Updated 01/11/25 @ 13:09 by Zoya Wallace CMA) History of cholecystectomy Family History (Updated 01/11/25 @ 13:11 by Zoya Wallace CMA) Mother Lung cancer Colon cancer Social History (Updated 01/11/25 @ 13:10 by Zoya Wallace CMA) Household Members: None Housing: Apartment Alcohol intake: never Patient Tobacco Use Status: Current everyday Tobacco user Cigarettes Per Day: 15 Use of substances other than those prescribed or required for medical reasons: No service: No Current occupational status: disabled Review of Systems Const All systems reviewed & are unremarkable except as noted in HPI and below ENT Reports Normal hearing present Card Reports no additional complaints Resp Reports as per HPI GI Reports as per HPI Reports no additional complaints Musc Reports as per HPI Neuro Reports as per HPI, Reports Normal hearing present, Denies Abnormal speech present, Denies confusion and Denies Sensory deficit (Neuro) Psych Reports no additional complaints and Denies confusion Physical Exam Vital Signs: Last Vital Signs Pulse 62 01/11/25 13:05 BP 135/61 01/11/25 13:05 Pulse Ox 98 01/11/25 13:05 Oxygen Delivery Method Room Air 01/11/25 13:05 BMI result Body Mass Index 30.4 Const General: no acute distress; No confusion Orientation/consciousness: patient oriented x3 and No confusion Eyes General: appearance normal, both eyes and all related structures Pupils: Equal, round and reactive pupils present EOM: EOMs intact bilaterally Neck Neck: Yes full ROM Chest Chest palpation & inspection: normal inspection of the chest Resp Effort & Inspection: normal respiratory effort, able to speak in complete sentences, normal respiratory pattern, no audible wheezes and no cough Cardio Jugular venous distension: no JVD GI Inspection: Yes normal to inspection Neuro General: patient oriented x3, gait normal and No confusion Cranial nerves: Yes CN's II-XII intact bilaterally, Yes Equal, round and reactive pupils present, Yes Normal hearing present and Yes Ability to bilaterally elevate shoulders present Speech: No Abnormal speech present Gait exam (Neuro): Normal gait present Motor exam (neuro): 5/5 motor strength present throughout Sensory Exam: No Sensory deficit (Neuro) Extrem General: No pedal edema Psych Speech and movement: Normal speech and movement present Affect: normal affect Attitude: cooperative Thought process: Normal thought process present Thought content: Normal thought content present Insight: Good insight present (Psych) Judgement: Good judgement present (Psych) Assessment & Plan Assessment & Plan (1) Chronic pain syndrome: Code(s): G89.4 - Chronic pain syndrome Category: Medical (2) Neuropathic pain syndrome (non-herpetic): Code(s): M79.2 - Neuralgia and neuritis, unspecified Category: Medical (3) Right leg pain: Code(s): M79.604 - Pain in right leg Category: Medical Plan this patient is interested in becoming chronic opioid program patient, she states that she is unable to sleep normally because of her pain she is unable to do activities of daily living, her life is miserable, she is barely able to care of herself. I explained to her that we do not prescribe short course opioid medications.I offered Her a trial of spinal cord stimulator. I need to obtain information from her previous pain physician, we requested the patient to provide the name of the practice where she was treated for her pain, and we will obtain information about her treatment there. Apparently those practice prescribed her opioid medications but it eventually they stopped prescription. Unfortunately the reason why the prescription was stopped is unknown to me and therefore I need to obtain the entire records from that practice. We also will send medical information release note to [facility] to obtain the MRI of the lumbar spine which she had apparently 1 year ago. I offered her trial of spinal cord stimulator, she was given the formulation page, she will provide this formulation page to her psychiatrist and request the psychiatrist to provide the note to us. I offered the patient several muscle relaxants and she said that she tried them all and none of them were helping her pain. She is on antidepressant medications already therefore the addition of the antidepressants to her regimen would not be prudent. She will give us a call when she will know whether or not her psychiatrist will be able to provide the clearance for her and schedule appointment with me. Patient Instructions: I here by testify that I spent 46 minutes in conversation with this patient as well as evaluating her prior records as well as planning her care and organizing this note. Coding Level of Care Code New Pt Level 4 (72949) Diagnoses Chronic pain syndrome G89.4 Neuropathic pain syndrome (non-herpetic) M79.2 Right leg pain M79.604
[2025-01-11 13:05] VITALS: BP 135/61; PULSE 62; O2SAT 98; BMI 30.4
--- OUTSIDE RECORDS SUMMARY | 2025-01-11 16:20 | XMS_ITS ---
Author Organization [facility] Address [address] [place] [phone] Care Team Providers Care Loaders Name Role Phone Henry GRIMES, Stella Primary Care Provider UnavailLINDA Vazquez Unavailable [phone] Medications Medication SIG (Take, Route, Frequency, Duration) Notes Start Date End Date Status Lidocaine 5 % 1 patch remove after 12 hours Externally Once a day for 30 days Active Encounters Encounter Location Date Provider Diagnosis [facility] [address] [place] [phone] 12/26/2024 LINDA PRICE long term care pharmacist (current) use of opiate analgesic Z79.891 Assessments Encounter Date Diagnosis (ICD Code) Assessment Notes Treatment Notes Treatment Clinical Notes Section Notes 12/26/2024 long term care pharmacist (current) use of opiate analgesic (ICD-10 - Z79.891) Plan Of Treatment Medication Medication Name Sig Start Date Stop Date Notes Lidocaine 5 % 1 patch remove after 12 hours Externally Once a day for 30 days Progress Notes * ALLEN CARRERA ADOB:[birth year] (59 yo F)Acc No.[id number]:12/26/2024 Patient:?ALLEN CARRERA :1965???Age:59 Y???Sex:Female Address:[address] [place] [address], [address] * Refills? Refill Lidocaine Patch, 5 %, Externally, 60, 1 patch remove after 12 hours, Once a day, 30 days, Refills=3 * * Date:?
--- OUTSIDE RECORDS SUMMARY | 2025-01-11 16:20 | XMS_ITS | Clinical Summary ---
Author Organization [facility] Address [address] [place] [address] Care Team Providers Care Electroplating Laborer Name Role Phone Stella Figueroa Primary Care Provider [phone] Allergies Active Allergy Reactions Criticality Noted Date [...] Screening 1965 Pap Smear 1965 Sigmoidoscopy 1965 Hepatitis B Vaccines (1 of 3 - 19+ 3-dose series) 05/01 Pneumococcal Vaccine: 50+ Years (1 of 2 - PCV) 986 DTaP,Tdap,and Td Vaccines (1 - Tdap) [address] Lung Cancer Screening (Baseline) 2017 Zoster Vaccines (1 of 2) 2017 Influenza Vaccine (#1) 2024 Alcohol/Substance Use Screening 11/01/2024 Depression Screening and Follow-Up 11/01/2024 Social Drivers of Health Annual Screening 11/01/2024 RSV Vaccine (60+ years old a nd patients) (1 - 1-dose 75+ series) 2042 Insurance BCBS OUT OF STATE PPO Care Teams Electroplating Laborer Relationship Specialty Start Date End Date Stella Figueroa [address] [place] [id number] PCP - General Internal Medicine 10/06/22
--- OUTSIDE RECORDS SUMMARY | 2025-01-11 16:20 | XMS_ITS | Clinical Summary ---
Author Organization [facility] [address] [facility] Address [address] [place] [address] Phone Care Team Providers Care Truck Rental Manager Name Role Phone Stella Figueroa MD Primary Care Provider [phone] Allergies Active Allergy Reactions Criticality Noted Date [...] in any 24 hour period. Active pancrelipase, Ooo-Oxng-Ifze, (Creon) 12,000-38,000 -60,000 unit capsule Take 2 [...] 10/17/2024 Telephone Gastroenterology - [address] [facility] [address] [place] [address] Marisela Garcia PA 10/13/2024 Telephone Gastroenterology - [address] [facility] [address] [place] [address] [address] [place] from Last 3 Months Immunizations Name Administration Dates Next Due [employer] SARS-CoV-2 COVID-19, mRNA, LNP-S, preservative free 01/27/2021,01/06/2021 [...] Result * Hepatitis C Screening (06/08/2024) Pathologist [facility] Hepatitis C Screening abstracted [facility] Provider HEALTH MAINTENANCE Final Result * (ABNORMAL) Lipid panel (06/08/2024) [facility] LDL/HDL Ratio 3 0 - 4 Triglycerides 126 0 - 150 mg/dL Cholesterol 212(A) 0 - 200 mg/dL HDL 64 >=40 mg/dL LDL Cholesterol 123(A) 0 - 100 mg/dL Blood Venous blood specimen / Unknown [facility] Provider LAB BLOOD ORDERABLES Ave l Result * Cervical Cancer Screening: HPV (08/12/2021) [facility] Cervical Cancer Screening: HPV negative, abstracted [facility] Provider HEALTH MAINTENANCE Final Result from Last 3 Months or Most Recently Relevant to Health Maintenance Insurance [place] MEDICARE ADVANTAGE Advance Directives Documents on File Type Date Recorded Patient Supervisor Cellars Expl anation Health Care Decision (hx) 08/11/2018 [...] (hx) 08/11/2018 AD BURNS DIRECTIVE Care Teams Truck Rental Manager Relationship Specialty Start Date End Date Stella Figueroa MD [address] [place] [phone] PCP - General Internal Medicine 08/10/18
--- OUTSIDE RECORDS SUMMARY | 2025-01-11 16:20 | XMS_ITS | Referral Summary ---
Author Organization [facility] Address [address] [place] [address] Care Team Providers Care Executive Wellness Programs Director Name Role Phone Stella Figueroa Primary Care Provider [phone] Allergies Active Allergy Reactions Criticality Noted Date [...] BC OUT OF STATE PPO Care Teams Executive Wellness Programs Director Relationship Specialty Start Date End Date Stella Figueroa [address] [place] [id number] PCP - General Internal Medicine 10/06/22
--- OUTSIDE RECORDS SUMMARY | 2025-01-11 16:20 | XMS_ITS ---
Author Organization [facility] Address [address] [place] [address] Care Team Providers Care Release Of Information Specialist Name Role Phone Henry GRIMES, [facility] Primary Care Provider CHACHO Mejia Unavailable [phone] Allergies No Known Allergies REASON FOR VISIT [...] Signs Temperature 98.4 degrees Fahrenheit 04/25/20 24 Blood pressure systolic 178 mm Hg 04/25/20 24 Blood pressure diastolic 97 mm Hg 024 Heart Rate 107 /min 04/25/2024 Height 65 in 04/25/2024 Weight 145 lbs 04/25/2024 BMI 24.13 kg/m2 04/25/2024 Oximetry 97 % 04/25/2024 Encounters Encounter Location Date Provider Diagnosis [facility] [address] [place] [phone] 04/25/2024 CHACHO PRICE custodial (current) use of opiate analgesic Z79.891 ; Spondylosis without myelopathy or radiculopathy, lumbar region M47.816 and Radiculopathy, lumbosacral region M54.17 Assessments Encounter Date Diagnosis (ICD Code) Assessment Notes Treatment Notes Treatment Clinical Notes Section Notes 04/25/2024 terminal clerk (current) use of opiate analgesic (ICD-10 - [...] I offered to referring her to an credit card specialist but she is denying she is [...] I offered to referring her to an credit card specialist but she is denying she is [...] * ALLEN CARRERA ADOB:[birth year] (58 yo F)Acc No.[id number]:04/25/2024 Progress Notes Patient:?ALLEN CARRERA A Provider:?Chacho Price MD :1965???Age:58 Y???Sex:Female D ate:04/25/2024 Address:[address] [place] [address] Pcp:Stella Figueroa MD Subjective: * Chief Complaints: [...] AND PASSED OUT 04/23/24 * Family History:?Mother: [place] n and lung Cancer.? * Social History:?Tobacco [...] or bandages, no redness..? Assessment: * Assessment: 1.?terminal clerk (current) use o f opiate analgesic - Z79.891 (Primary)?2.?Spondylosis without myelopathy or radiculopathy, lumbar region - M47.816?3.?Radiculopathy, lumbosacral region - M54.17? Plan: * Treatment: * Procedure Codes:? * Follow Up:?4 Weeks * Images: * Sign off status: Completed true * Provider:?Chacho Price MD Date:? 024 Generated for Henna vitale/Irina/eTransmitting on:?01/11/2025 04:19 PM EDT History and Physical Notes * Examination Category [...]
--- OUTSIDE RECORDS SUMMARY | 2025-01-11 16:20 | XMS_ITS ---
Author Organization [facility] Address [address] [place] [address] Care Team Providers Care Supervisor Maintenance Name Role Phone Henry GRIMES, [facility] Primary Care Provider CHACHO Mejia Unavailable [phone] Medications Medication SIG (Take, Route, Frequency, Duration) [...] Active Encounters Encounter Location Date Provider Diagnosis [facility] [address] [place] [phone] 05/29/2024 CHACHO PRICE Plan Of Treatment No Information Progress Notes * ALLEN CARRERA ADOB:[birth year] (59 yo F)Acc No.[id number]:05/29/2024 Progress Notes Patient:?ALLEN CARRERA Provider:?Chacho Price MD :1965???Age:59 Y???Sex:Female D ate:05/29/2024 Address:[address] [place], [place] [phone] Pcp:Stella Figueroa MD Subjective: * Chief Complaints: [...] Electronic signature of RANULFO ELIZALDE MD on 01/11/2025 at 04:19 PM EDT Sign off status: Pending * Provider:?Chacho Price MD Date:? 024 Generated for Henna vitale/Irnia/Riccardo on:?01/11/2025 04:19 PM EDT
== END 2025-01-11 13:49 | disposition home or self-care (01) ==
LOC: HO.PMC 12:59
PROVIDERS: PCP Internal Medicine; Visit Provider Anesthesiology
DX: G89.4 Chronic pain syndrome (principal); M79.2 Neuralgia and neuritis, unspecified; M79.604 Pain in right leg
CPT/HCPCS: 99204

== ENCOUNTER → 2025-01-11 12:58 | Outpatient (BNVA) | payer MEDICARE, SELFPAY | PROVIDERS: PCP Internal Medicine; Visit Provider Anesthesiology | DX: G89.4 Chronic pain syndrome (principal); R10.30 Lower abdominal pain, unspecified; M79.2 Neuralgia and neuritis, unspecified; M79.604 Pain in right leg | CPT/HCPCS: 99202 ==